=== PATIENT | male | born 1950 | race Caucasian/White ===

== ENCOUNTER → 2017-06-12 | Day surgery (SDC) | payer OTHER ==
[~2017-06-12] VITALS: Ht 162.6 cm; Wt 97.8 kg
[~2017-06-12] MED LIST: ASPI325T PO; ASPI81TA23 PO; ASPIRIN 325 MG TAB PO SCH; ATOR20TA PO; ATOR20TA15 PO; CARV25TA; CEPH500C3 PO; CORE25TA PO; COZA100T PO; GLIP10TA6 PO; GLIP1TAB18 PO; GLUCTAB PO; HYDR-3129 PO; LOSA100T PO; NITR0.4S SL; NITROGLYCERIN-D5W 50 MG/250 ML 250 ML ONE; NOVO7030P2 SQ; PIOG30 PO; SODIUM CHLOR 0.9% 1000 ML INJ 1,000 ML IV SCH; SPIR25 PO; SPIR25TA PO
[2017-06-12 06:26] VITALS: BP 137/71; PULSE 68; RESP 20; TEMP 97.8; O2SAT 98
--- NOTE | 2017-06-12 06:40 | MH ---
cc: Abraham Conley MD DATE OF ADMISSION: 06/12/2017 ADMISSION DIAGNOSES: 1. Class 3 angina pectoris with an abnormal nuclear stress test and known coronary artery disease. 2. History of previous ostial and proximal left anterior descending drug-eluting stent. 3. Cardiomyopathy, ejection fraction of 40%. 4. Type 2 diabetes. 5. Hypertension. 6. Hyperlipidemia. CHIEF COMPLAINT: Chest pain and dyspnea on exertion. HISTORY OF PRESENT ILLNESS: Mendoza Gross is a 67-year-old man whom I have been following closely for a number of years with coronary artery disease and cardiomyopathy. He had a previous revascularization procedure 12/03/2006. At that time, he had a 3.0 x 23 mm Cypher stent placed starting at the ostium of the left anterior descending coronary artery. It was postdilated with a 3.5 mm noncompliant balloon. At that time, he had a severe ostial stenosis of what appears to be probably a large marginal branch with a cutting balloon 2.5 mm in diameter. His last catheterization was 05/03/2009. At that time, ejection fraction was 20%. The left anterior descending artery stent was patent, but the LAD had diffuse disease. The first diagonal branch is jailed with diffuse 30% disease. The circumflex artery was a large vessel and had about a 20% proximal stenosis on a bend. 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 This was treated medically. The patient has been having problems with chest discomfort with activity and also shortness of breath with activity. He has a biventricular defibrillator. He underwent a nuclear stress test 04/29/2017. There was no transient ischemic dilation, but he had a moderate anterior and apical defect with redistribution suggestive of ischemia. His echocardiogram Doppler study shows an ejection fraction of about 40-45%. He has severe left ventricular hypertrophy. There is no significant valve disease. His symptoms have been ongoing despite a good medical therapy. Cardiac catheterization was initially scheduled quite a while ago, but the patient developed influenza and his procedure has been postponed until now. MEDICATIONS: 1. Aspirin 81 mg daily. 2. Atorvastatin 20 mg daily. 3. Carvedilol 25 mg p.o. twice a day. 4. Glipizide 10 mg twice a day. 5. Imdur 30 mg every morning. 6. Losartan 100 mg daily. 7. NovoLog insulin 70/30 as per protocol. 8. Spironolactone 25 mg daily. 9. Tamsulosin 0.4 mg daily. PAST MEDICAL HISTORY: Includes sleep apnea, biventricular [place] defibrillator, coronary artery disease, kidney stones, cardiomyopathy, colon polyps, depression, type 2 diabetes, hyperlipidemia, hypertension, old myocardial infarction and obesity. PAST SURGICAL HISTORY: Includes his catheterization procedures and colon resection in 2005. SOCIAL HISTORY: He is a college graduate served 4 years in [employer]. 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 He has never smoked. He is a nondrinker. He is . ALLERGIES: NONE. FAMILY HISTORY: Positive for hypertension and myocardial infarction in both of his parents. PHYSICAL EXAMINATION: GENERAL: This is a morbidly obese white male, with a body mass index of 37.42. HEENT: Unremarkable. NECK: Reveals no JVD, no bruits. CHEST: Shows a well-built healed defibrillator scar on the left chest. CARDIAC: Exam shows normal first and second heart sounds, regular rate and rhythm. No murmurs or gallops. ABDOMEN: Soft, nontender, no masses or organomegaly. EXTREMITIES: No clubbing or cyanosis. Pulses are intact. His old EKGs demonstrate AV pacing. IMPRESSION: This is a 67-year-old man who is 11 years out from an ostial proximal left anterior descending stent procedure. His nuclear stress test is now showing anteroapical ischemia. His risk factors are poorly controlled, i.e., with morbid obesity that is ongoing. PLAN: Perform diagnostic catheterization with possible intervention. Due to his short stature and morbid obesity, we will do this from the left wrist with possible revascularization if indicated. Informed consent has been obtained. MD PANCHO Garcia/BRIAN , 06:18 AM , 06:40 AM
[2017-06-12 06:43] LABS: AUTOMATED NEUTROPHIL # 6.7 TH/MM3 (1.8-7.7); BASOPHIL # 0.1 TH/MM3 (0-0.2); BASOPHIL % 1.1 % (0.0-2.0); EOSINOPHIL # 0.3 TH/MM3 (0-0.4); EOSINOPHIL % 2.6 % (0.0-4.0); HEMOGLOBIN 11.6 GM/DL (13.0-17.0); LYMPH % 24.1 % (9.0-44.0); LYMPHOCYTE # 2.7 TH/MM3 (1.0-4.8); MEAN CORPUSCULAR HEMOGLOBIN 29.3 PG (27.0-34.0); MEAN CORPUSCULAR HGB CONC 34.1 % (32.0-36.0); MEAN PLATELET VOLUME 7.2 FL (7.0-11.0); MONO % 11.3 % (0.0-8.0); MONOCYTE # 1.2 TH/MM3 (0-0.9); NEUT % 60.9 % (16.0-70.0); PLATELET COUNT 291 TH/MM3 (150-450); RED BLOOD COUNT 3.95 MIL/MM3 (4.50-5.90); RED CELL DISTRIBUTION WIDTH 13.4 % (11.6-17.2)
[2017-06-12 06:54] LABS: PROTHROMBIN TIME - PATIENT 10.2 SEC (9.8-11.6)
[2017-06-12 07:05] LABS: CALCIUM 9.3 MG/DL (8.5-10.1); CREATININE 2.13 MG/DL (0.60-1.30)
--- NOTE | 2017-06-12 14:06 | EKG ---
Date Performed: 06/12/2017 Time Performed: 06:53:28 PTAGE: 67 years EKG: Sinus rhythm WITH P-WAVE SYNCHRONOUS PACING Abnormal ECG Since PREVIOUS TRACING , no significant change noted PREVIOUS TRACIN03/15/2014 11.40 DOCTOR: Abraham Conley Interpretating Date/Time 06/12/2017 14:04:56
== END | disposition home or self-care (01) ==
LOC: HDOC 05:44 → HDIC 05:44
PROVIDERS: ATTEND Internal Medicine Cardiovascular Disease
DX: I25.119 Atherosclerotic heart disease of native coronary artery with unspecified angina pectoris (principal); I10 Essential (primary) hypertension; I42.9 Cardiomyopathy, unspecified; E11.9 Type 2 diabetes mellitus without complications; G47.30 Sleep apnea, unspecified; E78.5 Hyperlipidemia, unspecified; E66.01 Morbid (severe) obesity due to excess calories; Z68.37 Body mass index [BMI] 37.0-37.9, adult; Z79.82 Long term (current) use of aspirin; Z79.84 Long term (current) use of oral hypoglycemic drugs; Z95.5 Presence of coronary angioplasty implant and graft; Z87.442 Personal history of urinary calculi; Z53.09 Procedure and treatment not carried out because of other contraindication
CPT/HCPCS: 80048; 85025; 85610; 85730; 93005; G0463; J3010; 99211

== ENCOUNTER 2017-09-08 15:14 | Inpatient (IN) | payer OTHER, MEDICARE ==
[~2017-09-08] VITALS: Ht 162.6 cm; Wt 96.9 kg
[2017-09-08] VITALS (12 sets, daily range): BP systolic 88–177; BP diastolic 9–103; PULSE 63–148; RESP 16–24; TEMP 97.7–98.5; O2SAT 96–100
[~2017-09-08 15:14] MED LIST changes: -ASPI325T PO; -ASPIRIN 325 MG TAB PO SCH; -ATOR20TA PO; -CEPH500C3 PO; -CORE25TA PO; -COZA100T PO; -GLIP1TAB18 PO; -GLUCTAB PO; -HYDR-3129 PO; -NITROGLYCERIN-D5W 50 MG/250 ML 250 ML ONE; -PIOG30 PO; -SODIUM CHLOR 0.9% 1000 ML INJ 1,000 ML IV SCH; -SPIR25 PO
[2017-09-08] MEDS ORDERED: ASPIRIN 81 MG CHEW TAB PO ONE (15:30)
[2017-09-08] MEDS ORDERED: MORPHINE SULFATE 4 MG/ML INJ IV PUSH ONE (15:30)
[2017-09-08] MEDS ORDERED: SODIUM CHLORID 0.9% 500 ML INJ 500 ML IV ONE ×2 (15:30→16:15)
[2017-09-08] MEDS: NITROGLYCERIN 0.4 MG SL 25 TABS/BTL SL SCH ×3 (15:30→15:40)
[2017-09-08] MEDS ORDERED: SODIUM CHLORIDE 0.9% FLUSH 10 ML FLUSH IVF PRN (15:30)
[2017-09-08] MEDS ORDERED: METOPROLOL TARTRATE 5 MG/5 ML VIAL IVS SCH (15:30)
[2017-09-08] MEDS ORDERED: METOPROLOL TARTRATE 5 MG/5 ML VIAL IV PUSH ONE ×3 (15:45→16:30)
--- NOTE | 2017-09-08 15:56 | PD ---
HPI Chief Complaint: Chest Pain Time Seen by Provider: 15:26 Travel History International Travel<30 days: No Contact w/Intl Traveler<30days: No Traveled to known affect area: No History of Present Illness HPI The patient is a 67-year-old male who was chest pain. The patient states he developed chest pain approximately 10 AM this morning while lying in bed working on a puzzle. The chest pain is substernal, described as pressure, nonradiating, and associated with mild shortness of breath. The patient denies any nausea, vomiting, or diaphoresis. The chest pain is described as pressure. The patient does have a history of previous [place] with stent placement by Dr. Conley as well as a poor ejection fraction at 20%, with subsequent AICD placement. The patient recently has had some chest pain and saw Dr. Conley in the office, they contemplated a cardiac catheterization versus medical management. The patient states he has a history of CKD stage III, therefore, they decided to use a nitro patch as opposed to cardiac catheterization. The patient's symptoms did start this morning, he denies any history of atrial fibrillation. Symptoms are moderate. There are no current alleviating or exacerbating factors. PFSH Past Medical History Arthritis: Yes Blood Disorders: No Anxiety: Yes Cancer: Yes (SKIN) Cardiovascular Problems: Yes High Cholesterol: Yes Chemotherapy: No Chest Pain: No Diabetes: Yes (TYPE II) Endocrine: No Gastrointestinal Disorders: No Glaucoma: No Genitourinary: Yes Hepatitis: No Hiatal Hernia: No Hypertension: Yes Immune Disorder: No Kidney Stones: Yes Musculoskeletal: No Neurologic: No Psychiatric: No Reproductive: No Respiratory: Yes Integumentary: No Myocardial Infarction: Yes Radiation Therapy: No Thyroid Disease: No ?: Not Past Surgical History Abdominal Surgery: Yes (COLON) AICD: Yes (ATLAS ST [facility]) Cardiac Surgery: Yes (PACER/ HEART CATH. SENT X2 ) Pacemaker: No Thoracic Surgery: Yes (BIV-ICD-MADELINE) Other Surgery: Yes (SKIN CA REMOVED) Social History Alcohol Use: No Tobacco Use: No Substance Use: No Allergies-Medications (Allergen,Severity, Reaction): Coded Allergies: No Known Allergies (Verified Allergy, Unknown, NKA, 09/08/17) Reported Meds & Prescriptions Reported Meds & Active Scripts Active Reported Spironolactone 25 Mg Tab 25 Mg PO DAILY Novolin 70-30 Inj (Insulin Human Isoph/Insulin Regular) 1,000 Unit/10 Ml Vial 21 Units SQ Nitrostat SL (Nitroglycerin) 0.4 Mg Subl 0.4 Mg SL DIRECTED PRN 1 tablet under the tongue as needed for chest pain. Repeat every 5 minutes for a total of 3 DOSES or call 911 if NO relief. Losartan (Losartan Potassium) 100 Mg Tab 100 Mg PO DAILY Glipizide 10 Mg Tab 10 Mg PO BIDAC Take 30 minutes before a meal Carvedilol 25 Mg Tab 25 Mg BID Atorvastatin (Atorvastatin Calcium) 20 Mg Tab 20 Mg PO HS Aspirin EC (Aspirin) 81 Mg Tabdr 81 Mg PO DAILY Review of Systems Except as stated in HPI: all other systems reviewed are Neg General / Constitutional: No: Fever HENT: No: Lightheadedness Cardiovascular: Positive: Chest Pain or Discomfort, Dyspnea on exertion, No: Diaphoresis Respiratory: Positive: Shortness of Breath Gastrointestinal: No: Nausea, Vomiting, Abdominal Pain Musculoskeletal: Positive: Weakness Neurologic: No: Focal Abnormalities Physical Exam Narrative GENERAL: Awake, alert, pleasant 67-year-old male who appears his stated age. SKIN: Focused skin assessment warm/dry. Pale complexion. HEAD: Atraumatic. Normocephalic. EYES: Pupils equal and round. No scleral icterus. No injection or drainage. ENT: No nasal bleeding or discharge. Mucous membranes pink and moist. NECK: Trachea midline. No JVD. CARDIOVASCULAR: Irregularly irregular, tachycardic with a heart rate in the 140s. RESPIRATORY: No accessory muscle use. Clear to auscultation. Breath sounds equal bilaterally. GASTROINTESTINAL: Abdomen soft, non-tender, nondistended. Well-healed midline abdominal scar. MUSCULOSKELETAL: No obvious deformities. No clubbing. No cyanosis. No edema. NEUROLOGICAL: Awake and alert. No obvious cranial nerve deficits. Motor grossly within normal limits. Normal speech. Nonfocal. PSYCHIATRIC: Appropriate mood and affect; insight and judgment normal. Data Data Last Documented VS Vital Signs Date Time Temp Pulse Resp B/P (MAP) Pulse Ox O2 Delivery O2 Flow Rate FiO2 09/08/17 17:21 70 18 98 Room Air 09/08/17 17:20 2.00 09/08/17 15:20 97.7 Orders Orders Electrocardiogram (09/08/17 15:28) B-Type Natriuretic Peptide (09/08/17 15:28) Ckmb (Isoenzyme) Profile (09/08/17 15:28) Complete Blood Count With Diff (09/08/17 15:28) Comprehensive Metabolic Panel (09/08/17 15:28) Magnesium (Mg) (09/08/17 15:28) Prothrombin Time / Inr (Pt) (09/08/17 15:28) Act Partial Throm Time (Ptt) (09/08/17 15:28) Troponin I (09/08/17 15:28) Ecg Monitoring (09/08/17 15:28) Bilateral Bp Monitoring (09/08/17 15:28) Iv Access Insert/Monitor (09/08/17 15:28) Oximetry (09/08/17 15:28) Oxygen Administration (09/08/17 15:28) Aspirin Chew (Aspirin Chew) (09/08/17 15:30) Morphine Inj (Morphine Inj) (09/08/17 15:30) Sodium Chloride 0.9% Flush (Ns Flush) (09/08/17 15:30) Nitroglycerin Sl (Nitrostat Sl) (09/08/17 15:30) Metoprolol Tartrate Inj (Lopressor Inj) (09/08/17 15:30) Sodium Chlorid 0.9% 500 Ml Inj (Ns 500 M (09/08/17 15:30) Chest, Pa & Lat (09/08/17 15:28) Metoprolol Tartrate Inj (Lopressor Inj) (09/08/17 15:45) Nitroglycerin 2% Oint (Nitroglycerin 2% (09/08/17 16:00) Metoprolol Tartrate Inj (Lopressor Inj) (09/08/17 16:00) Sodium Chlorid 0.9% 500 Ml Inj (Ns 500 M (09/08/17 16:15) Metoprolol Tartrate Inj (Lopressor Inj) (09/08/17 16:30) Esmolol Drip Inj Premix (Brevibloc Drip (09/08/17 16:30) Esmolol Bolus Inj (Brevibloc Bolus Inj) (09/08/17 16:30) Esmolol Bolus Inj (Brevibloc Bolus Inj) (09/08/17 16:30) Digoxin Inj (Lanoxin Inj) (09/08/17 17:30) Chest, Single Ap (09/08/17 ) (Hub Use Only)Inp Phy Cons/Ref (09/08/17 ) Admit To Inpatient (09/08/17 ) Vital Signs (Adult) Q4H (09/08/17 17:39) Activity Oob With Assistance (09/08/17 17:39) Personal Computer Specialist / Telemetry .CONTINUOUS (09/08/17 17:39) Diet Heart Healthy (09/08/17 Dinner) Sodium Chlor 0.9% 1000 Ml Inj (Ns 1000 M (09/08/17 17:39) Sodium Chloride 0.9% Flush (Ns Flush) (09/08/17 17:45) Sodium Chloride 0.9% Flush (Ns Flush) (09/08/17 21:00) Acetaminophen (Tylenol) (09/08/17 17:45) Ondansetron Inj (Zofran Inj) (09/08/17 17:45) Basic Metabolic Panel (Bmp) (09/09/17 06:00) Complete Blood Count With Diff (09/09/17 06:00) Creatine Kinase (Cpk) (09/08/17 21:00) Creatine Kinase (Cpk) (09/09/17 03:00) Troponin I (09/08/17 21:00) Troponin I (09/09/17 03:00) Electrocardiogram (09/08/17 21:00) Electrocardiogram (09/09/17 03:00) Resp Oxygen Bran C Titrat 1-4 L (09/08/17 ) Heparin Inj (Heparin Inj) (09/08/17 18:00) Scd Bilateral/Knee High [place]ISON.BID (09/08/17 17:39) Ugo Bilateral/Knee High [place]AD[place].QSHIFT (09/08/17 17:39) Naloxone Inj (Narcan Inj) (09/08/17 17:45) Docusate Sodium-Senna (Yanet-Colace) (09/08/17 21:00) Magnesium Hydroxide Liq (Milk Of Magnesi (09/08/17 17:45) Sennosides (Senokot) (09/08/17 17:45) Bisacodyl Supp (Dulcolax Supp) (09/08/17 17:45) Lactulose Liq (Lactulose Liq) (09/08/17 17:45) Inpatient Certification (09/08/17 ) Consult Cardiology (09/08/17 ) Admit Order (Ed Use Only) (09/08/17 ) Labs Laboratory Tests Test 09/08/17 15:35 White Blood Count 12.1 TH/MM3 Red Blood Count 4.41 MIL/MM3 Hemoglobin 12.6 GM/DL Hematocrit 39.1 % Mean Corpuscular Volume 88.7 FL Mean Corpuscular Hemoglobin 28.6 PG Mean Corpuscular Hemoglobin Concent 32.2 % Red Cell Distribution Width 13.1 % Platelet Count 283 TH/MM3 Mean Platelet Volume 7.9 FL Neutrophils (%) (Auto) 71.7 % Lymphocytes (%) (Auto) 17.7 % Monocytes (%) (Auto) 8.2 % Eosinophils (%) (Auto) 1.6 % Basophils (%) (Auto) 0.8 % Neutrophils # (Auto) 8.7 TH/MM3 Lymphocytes # (Auto) 2.1 TH/MM3 Monocytes # (Auto) 1.0 TH/MM3 Eosinophils # (Auto) 0.2 TH/MM3 Basophils # (Auto) 0.1 TH/MM3 CBC Comment DIFF FINAL Differential Comment Prothrombin Time 10.2 SEC Prothromb Time International Ratio 1.0 RATIO Activated Partial Thromboplast Time 30.7 SEC Blood Urea Nitrogen 35 MG/DL Creatinine 2.12 MG/DL Random Glucose 206 MG/DL Total Protein 8.4 GM/DL Albumin 4.0 GM/DL Calcium Level 9.3 MG/DL Magnesium Level 1.8 MG/DL Alkaline Phosphatase 59 U/L Aspartate Amino Transf (AST/SGOT) 9 U/L Alanine Aminotransferase (ALT/SGPT) 22 U/L Total Bilirubin 0.7 MG/DL Sodium Level 137 MEQ/L Potassium Level 5.0 MEQ/L Chloride Level 111 MEQ/L Carbon Dioxide Level 16.3 MEQ/L Anion Gap 10 MEQ/L Estimat Glomerular Filtration Rate 31 ML/MIN Total Creatine Kinase 60 U/L Troponin I LESS THAN 0.02 NG/ML B-Type Natriuretic Peptide 40 PG/ML MDM Medical Decision Making Medical Screen Exam Complete: Yes Emergency Medical Condition: Yes Medical Record Reviewed: Yes Interpretation(s) EKG #1 reveals atrial fibrillation with RVR, rate in the 130s. QRS of 163 ms, consistent with bundle branch block. ST elevations noted, most likely secondary to underlying bundle branch block. EKG #2 reveals electronic ventricular pacemaker with a rate of 70. Laboratory Tests Test 09/08/17 15:35 White Blood Count 12.1 TH/MM3 Red Blood Count 4.41 MIL/MM3 Hemoglobin 12.6 GM/DL Hematocrit 39.1 % Mean Corpuscular Volume 88.7 FL Mean Corpuscular Hemoglobin 28.6 PG Mean Corpuscular Hemoglobin Concent 32.2 % Red Cell Distribution Width 13.1 % Platelet Count 283 TH/MM3 Mean Platelet Volume 7.9 FL Neutrophils (%) (Auto) 71.7 % Lymphocytes (%) (Auto) 17.7 % Monocytes (%) (Auto) 8.2 % Eosinophils (%) (Auto) 1.6 % Basophils (%) (Auto) 0.8 % Neutrophils # (Auto) 8.7 TH/MM3 Lymphocytes # (Auto) 2.1 TH/MM3 Monocytes # (Auto) 1.0 TH/MM3 Eosinophils # (Auto) 0.2 TH/MM3 Basophils # (Auto) 0.1 TH/MM3 CBC Comment DIFF FINAL Differential Comment Prothrombin Time 10.2 SEC Prothromb Time International Ratio 1.0 RATIO Activated Partial Thromboplast Time 30.7 SEC Blood Urea Nitrogen 35 MG/DL Creatinine 2.12 MG/DL Random Glucose 206 MG/DL Total Protein 8.4 GM/DL Albumin 4.0 GM/DL Calcium Level 9.3 MG/DL Magnesium Level 1.8 MG/DL Alkaline Phosphatase 59 U/L Aspartate Amino Transf (AST/SGOT) 9 U/L Alanine Aminotransferase (ALT/SGPT) 22 U/L Total Bilirubin 0.7 MG/DL Sodium Level 137 MEQ/L Potassium Level 5.0 MEQ/L Chloride Level 111 MEQ/L Carbon Dioxide Level 16.3 MEQ/L Anion Gap 10 MEQ/L Estimat Glomerular Filtration Rate 31 ML/MIN Total Creatine Kinase 60 U/L Troponin I LESS THAN 0.02 NG/ML B-Type Natriuretic Peptide 40 PG/ML Differential Diagnosis Differential diagnosis includes atrial fibrillation with RVR, coronary artery disease, acute coronary syndrome, cardiomyopathy, congestive heart failure, STEMI, electrolyte abnormality. Narrative Course IV was established, labs are drawn and sent, and the patient was placed on cardiac telemetry monitoring and continuous pulse oximetry monitoring. EKG was ordered and interpreted. Chest x-ray was obtained. The patient was administered aspirin and placed on Nitropaste. The patient also received morphine and Lopressor 5 mg intravenously. Lopressor 5 mg intravenously brought the patient's heart rate down into the 120s, therefore, the dose was repeated 1. The patient's heart rate was still in the 120s, therefore, he was administered a third dose of Lopressor 5 mg intravenously and placed on an esmolol drip. The patient was chest pain-free as of 4:18 PM. The patient then converted from atrial fibrillation with RVR back to a paced ventricular rhythm. The patient will be admitted, may benefit from echocardiogram and evaluation by his campground caretaker, Dr. Abraham Conley. I tried to get a hold of Dr. Abraham Conley, however, he was not on-call, Dr. Lizama was foundation maker. Therefore, consult will be placed. The patient may benefit from evaluation by cardiology for possible anticoagulation for paroxysmal atrial fibrillation. The patient agrees and understands the plan of care. Critical Care Narrative Aggregate critical care time was 40 minutes. Time to perform other separately billable procedures was not included in the critical care time. My time did not include minutes spent treating any other patients simultaneously or on activities that did not directly contribute to the patient's treatment. The services I provided to this patient were to treat and/or prevent clinically significant deterioration that could result in: Cardiomyopathy, ischemia, dysrhythmia, flash pulmonary edema, congestive heart failure. I provided critical care services requiring my management, as noted below: Chart data review, documentation time, medication orders and management, vital sign assessments/reviewing monitor data, ordering and reviewing lab tests, ordering and interpreting/reviewing x-rays and diagnostic studies, care of the patient and discussion of the patient with the admitting physicians. Physician Communication Physician Communication I discussed the patient with Dr. Garcia. who agrees with admission. Diagnosis Primary Impression: Atrial fibrillation with RVR Admitting Information Admitting Physician Requests: Admit Condition: Stable Humble Hoffman MD Sep 08, 2017 15:56
--- NOTE | 2017-09-08 15:59 | RADRPT ---
EXAM DATE: 09/08/2017 3:46 PM EDT AGE/SEX: 67 years / Male INDICATIONS: Chest pain CLINICAL DATA: This is the patient's initial encounter. Patient reports that signs and symptoms have been present for 1 day and indicates a pain score of 3/10. MEDICAL/SURGICAL HISTORY: Hypertension. Diabetes mellitus type II. Cardiovascular disease. Sergey austin. Coronary artery stent. COMPARISON: No prior exams available for comparison. FINDINGS: Pacemaker on the left. Mild cardiomegaly. No infiltrate failure or pneumothorax. The portion of the bony skeleton visualized is unremarkable. Conclusion: Pacemaker otherwise negative for acute process Electronically signed by: Michael Cruz MD 09/08/2017 3:57 PM EDT
[2017-09-08 16:00] LABS: AUTOMATED NEUTROPHIL # 8.7 TH/MM3 (1.8-7.7); BASOPHIL # 0.1 TH/MM3 (0-0.2); BASOPHIL % 0.8 % (0.0-2.0); EOSINOPHIL # 0.2 TH/MM3 (0-0.4); EOSINOPHIL % 1.6 % (0.0-4.0); HEMATOCRIT 39.1 % (39.0-51.0); HEMOGLOBIN 12.6 GM/DL (13.0-17.0); LYMPH % 17.7 % (9.0-44.0); LYMPHOCYTE # 2.1 TH/MM3 (1.0-4.8); MEAN CELL VOLUME 88.7 FL (80.0-100.0); MEAN CORPUSCULAR HEMOGLOBIN 28.6 PG (27.0-34.0); MEAN CORPUSCULAR HGB CONC 32.2 % (32.0-36.0); MEAN PLATELET VOLUME 7.9 FL (7.0-11.0); MONO % 8.2 % (0.0-8.0); NEUT % 71.7 % (16.0-70.0); PLATELET COUNT 283 TH/MM3 (150-450); RED BLOOD COUNT 4.41 MIL/MM3 (4.50-5.90); RED CELL DISTRIBUTION WIDTH 13.1 % (11.6-17.2); WHITE BLOOD COUNT 12.1 TH/MM3 (4.0-11.0)
[2017-09-08] MEDS: NITROGLYCERIN 2% OINT 1 GM PACKET TOPICAL ONE ×2 (16:00→17:04)
[2017-09-08 16:14] LABS: ALT (GPT) 22 U/L (12-78); AST (GOT) 9 U/L (15-37); BICARBONATE 16.3 MEQ/L (21.0-32.0); BLOOD UREA NITROGEN 35 MG/DL (7-18); CALCIUM 9.3 MG/DL (8.5-10.1); CHLORIDE 111 MEQ/L (98-107); CREATININE 2.12 MG/DL (0.60-1.30); GLOMERULAR FILTRATION RATE 31 ML/MIN (>89); GLUCOSE,RANDOM 206 MG/DL (74-106); MAGNESIUM 1.8 MG/DL (1.5-2.5); SODIUM (NA) 137 MEQ/L (136-145)
[2017-09-08 16:17] LABS: PROTHROMBIN TIME - PATIENT 10.2 SEC (9.8-11.6)
[2017-09-08 16:19] LABS: ALKALINE PHOSPHATASE 59 U/L (45-117); TOTAL BILIRUBIN ADULT 0.7 MG/DL (0.2-1.0); TOTAL PROTEIN 8.4 GM/DL (6.4-8.2); TROPONIN I LESS THAN 0.02 NG/ML (0.02-0.05)
[2017-09-08] MEDS ORDERED: ESMOLOL DRIP INJ PREMIX 250 ML IV PRN (16:30)
[2017-09-08] MEDS ORDERED: ESMOLOL HCL 100 MG/10 ML VIAL IV PUSH PRN ×2 (16:30)
[2017-09-08] MEDS ORDERED: DIGOXIN 0.5 MG/2 ML VIAL IV PUSH ONE (17:30)
[2017-09-08] MEDS ORDERED: SODIUM CHLOR 0.9% 1000 ML INJ 1,000 ML IV SCH (17:39)
[2017-09-08] MEDS ORDERED: BISACODYL 10 MG SUPP RECTAL PRN (17:45)
[2017-09-08] MEDS ORDERED: LACTULOSE SYRUP 20 GM/30 ML CUP PO PRN (17:45)
[2017-09-08] MEDS ORDERED: MAGNESIUM HYDROXIDE SUSP 30 ML CUP PO PRN (17:45)
[2017-09-08] MEDS ORDERED: ACETAMINOPHEN 325 MG TAB PO PRN (17:45)
[2017-09-08] MEDS ORDERED: ONDANSETRON HCL 4 MG/2 ML VIAL IVP PRN (17:45)
[2017-09-08] MEDS ORDERED: SODIUM CHLORIDE 0.9% FLUSH 10 ML FLUSH IV FLUSH PRN (17:45)
[2017-09-08] MEDS ORDERED: SENNOSIDES 8.6 MG TAB PO PRN (17:45)
[2017-09-08] MEDS ORDERED: NALOXONE HCL 0.4 MG/ML AMP IV PUSH PRN (17:45)
--- NOTE | 2017-09-08 17:56 | RADRPT ---
EXAM DATE: 09/08/2017 5:50 PM EDT AGE/SEX: 67 years / Male INDICATIONS: Left sided chest pain. CLINICAL DATA: This is the patient's initial encounter. Patient reports that signs and symptoms have been present for 1 day and indicates a pain score of 8/10. MEDICAL/SURGICAL HISTORY: . A-fib, myocardial infarction. Pacemaker. Coronary artery stent. [place] [facility] [place]. . FINDINGS: A pacing implement is present with control pack over left upper chest. Lungs are focally clear. No pl eural effusion evident. Cardiac contours are stable and satisfactory. CONCLUSION: No acute disease Electronically signed by: Abel Chacko MD 09/08/2017 5:54 PM EDT
[2017-09-08] MEDS ORDERED: HEPARIN SODIUM - SQ 10,000 UNITS/ML VIAL SQ SCH (18:00)
[2017-09-08] MEDS ORDERED: NOVO7030P2 SQ (18:07)
[2017-09-08] MEDS ORDERED: GLUCAGON 1 MG/ML VIAL OTHER PRN (18:45)
[2017-09-08] MEDS ORDERED: DEXTROSE 50% IN WATER 50 ML VIAL(D50) IV PUSH PRN (18:45)
--- NOTE | 2017-09-08 18:49 | HHI.HP ---
[facility] Service [facility] Primary Care Physician Juaquin Valladarse MD Admission Diagnosis New onset atrial fibrillation with RVR Diagnoses: (1) Coronary artery disease (2) Diabetes mellitus (3) Acute kidney injury (4) Atrial fibrillation with RVR Chief Complaint: Chest pain Travel History International Travel<30 Days: No Contact w/Intl Traveler <30 Da: No Traveled to Known Affected Are: No History of Present Illness The patient is a 67-year-old male who presented to the emergency department with chest pain that started approximately 10:00 this morning. He states that he was lying in bed at the time. Pain was on the left side of his chest described as pressure and radiating down his left arm. He reported associated shortness of breath. Pain resolved when he received medication in the ER. He has a history of coronary artery disease with prior stent placement by Dr. Conley. He has an AICD in place. He states that Dr. Conley is considering a repeat cardiac catheterization. Review of Systems Constitutional: DENIES: Fever, Chills, Night Sweats Eyes: DENIES: Blurred vision, Vision loss Ears, nose, mouth, throat: DENIES: Hearing loss Respiratory: DENIES: Cough, Wheezing, Sputum production, Shortness of breath Cardiovascular: COMPLAINS OF: Chest pain, DENIES: Palpitations, Dyspnea on Exertion, Lower Extremity Edema Gastrointestinal: DENIES: Abdominal pain, Constipation, Diarrhea, Nausea, Vomiting Genitourinary: DENIES: Urinary frequency, Urinary incontinence, Urgency, Hematuria, Dysuria, Nocturia Musculoskeletal: DENIES: Joint pain, Muscle aches Integumentary: DENIES: Pruritus, Rash Hematologic/lymphatic: DENIES: Bruising Neurologic: DENIES: Headache Past Family Social History Past Medical History Anxiety Diabetes mellitus type 2 Coronary artery disease History of kidney stones History of skin cancer Osteoarthritis Hypertension Chronic kidney disease stage III Past Surgical History Partial colectomy AICD placement Cardiac catheterization with stent placement Skin cancer surgery Reported Medications Spironolactone 25 Mg Tab 25 Mg PO DAILY Novolin 70-30 Inj (Insulin Human Isoph/Insulin Regular) 1,000 Unit/10 Ml Vial 21 Units SQ Nitrostat SL (Nitroglycerin) 0.4 Mg Subl 0.4 Mg SL DIRECTED PRN 1 tablet under the tongue as needed for chest pain. Repeat every 5 minutes for a total of 3 DOSES or call 911 if NO relief. Losartan (Losartan Potassium) 100 Mg Tab 100 Mg PO DAILY Glipizide 10 Mg Tab 10 Mg PO BIDAC Take 30 minutes before a meal Carvedilol 25 Mg Tab 25 Mg BID Atorvastatin (Atorvastatin Calcium) 20 Mg Tab 20 Mg PO HS Aspirin EC (Aspirin) 81 Mg Tabdr 81 Mg PO DAILY Allergies: Coded Allergies: No Known Allergies (Verified Allergy, Unknown, NKA, 09/08/17) Family History Heart disease Social History Denies alcohol, tobacco, or illicit drug use. Physical Exam Vital Signs Vital Signs Date Time Temp Pulse Resp B/P (MAP) Pulse Ox O2 Delivery O2 Flow Rate FiO2 09/08/17 17:21 70 18 98 Room Air 09/08/17 17:20 118 18 98 Nasal Cannula 2.00 09/08/17 17:19 132 19 98 Nasal Cannula 2.00 09/08/17 17:04 142 18 88/66 (73) 97 Nasal Cannula 2.00 09/08/17 16:28 123 18 112/59 (76) 97 09/08/17 16:15 125 122/60 (80) 97 09/08/17 16:15 125 18 122/60 (80) 98 Nasal Cannula 2.00 09/08/17 15:52 120 18 96/50 (65) 97 Nasal Cannula 2.00 09/08/17 15:52 120 16 96/50 (65) 96 Nasal Cannula 2.00 09/08/17 15:47 130 109/9 (42) 09/08/17 15:47 97 Nasal Cannula 2.00 09/08/17 15:20 97.7 148 24 177/103 (127) 97 Physical Exam GENERAL: Well-nourished, well-developed male in no acute distress. HEENT: Normocephalic, atraumatic. Pupils equal, round and reactive. Extraocular movements intact. No scleral icterus. No injection or drainage. Oropharynx is clear. Mucous membranes are moist. CARDIOVASCULAR: Regular rate and rhythm without murmurs, gallops, or rubs. RESPIRATORY: Clear to auscultation. No wheezes, rales, or rhonchi. Breathing is non-labored. GASTROINTESTINAL: Abdomen soft, non-tender, nondistended. EXTREMITIES: No lower extremity edema. No calf tenderness. PSYCH: Alert and oriented x 3. Laboratory Laboratory Tests Test 09/08/17 15:35 White Blood Count 12.1 Red Blood Count 4.41 Hemoglobin 12.6 Hematocrit 39.1 Mean Corpuscular Volume 88.7 Mean Corpuscular Hemoglobin 28.6 Mean Corpuscular Hemoglobin Concent 32.2 Red Cell Distribution Width 13.1 Platelet Count 283 Mean Platelet Volume 7.9 Neutrophils (%) (Auto) 71.7 Lymphocytes (%) (Auto) 17.7 Monocytes (%) (Auto) 8.2 Eosinophils (%) (Auto) 1.6 Basophils (%) (Auto) 0.8 Neutrophils # (Auto) 8.7 Lymphocytes # (Auto) 2.1 Monocytes # (Auto) 1.0 Eosinophils # (Auto) 0.2 Basophils # (Auto) 0.1 CBC Comment DIFF FINAL Differential Comment Prothrombin Time 10.2 Prothromb Time International Ratio 1.0 Activated Partial Thromboplast Time 30.7 Blood Urea Nitrogen 35 Creatinine 2.12 Random Glucose 206 Total Protein 8.4 Albumin 4.0 Calcium Level 9.3 Magnesium Level 1.8 Alkaline Phosphatase 59 Aspartate Amino Transf (AST/SGOT) 9 Alanine Aminotransferase (ALT/SGPT) 22 Total Bilirubin 0.7 Sodium Level 137 Potassium Level 5.0 Chloride Level 111 Carbon Dioxide Level 16.3 Anion Gap 10 Estimat Glomerular Filtration Rate 31 Total Creatine Kinase 60 Troponin I LESS THAN 0.02 B-Type Natriuretic Peptide 40 Result Diagram: 09/08/17 1535 09/08/17 1535 Imaging Last Impressions Chest X-Ray 09/08/17 0000 Signed Impressions: CONCLUSION: No acute disease Caprini VTE Risk Assessment Caprini VTE Risk Assessment: Mod/High Risk (score >= 2) Caprini Risk Assessment Model Point Value = 1 Point Value = 2 Point Value = 3 Point Value = 5 Age 41-60 Minor surgery BMI > 25 kg/m2 Swollen legs Varicose veins or History of unexplained or recurrent spontaneous Oral contraceptives or hormone replacement Sepsis (< 1 month) Serious lung disease, including pneumonia (< 1 month) Abnormal pulmonary function Acute myocardial infarction Congestive heart failure (< 1 month) History of inflammatory bowel disease Medical patient at bed rest Age 61-74 Arthroscopic surgery Major open surgery (> 45 min) Laparoscopic surgery (> 45 min) Malignancy Confined to bed (> 72 hours) Immobilizing plaster cast Central venous access Age >= 75 History of VTE Family history of VTE Factor V Leiden Prothrombin [id number] Lupus anticoagulant Anticardiolipin antibodies Elevated serum homocysteine Heparin-induced thrombocytopenia Other congenital or acquired thrombophilia Stroke (< 1 month) Elective arthroplasty Hip, pelvis, or leg fracture Acute spinal cord injury (< 1 month) Prophylaxis Regimen Total Risk Factor Score Risk Level Prophylaxis Regimen 0-1 Low Early ambulation 2 Moderate Order ONE of the following: *Sequential Compression Device (SCD) *Heparin 5000 units SQ BID 3-4 Higher Order ONE of the following medications: *Heparin 5000 units SQ TID *Enoxaparin/Lovenox 40 mg SQ daily (WT < 150 kg, CrCl > 30 mL/min) *Enoxaparin/Lovenox 30 mg SQ daily (WT < 150 kg, CrCl > 10-29 mL/min) *Enoxaparin/Lovenox 30 mg SQ BID (WT < 150 kg, CrCl > 30 mL/min) AND/OR *Sequential Compression Device (SCD) 5 or more Highest Order ONE of the following medications: *Heparin 5000 units SQ TID (Preferred with Epidurals) *Enoxaparin/Lovenox 40 mg SQ daily (WT < 150 kg, CrCl > 30 mL/min) *Enoxaparin/Lovenox 30 mg SQ daily (WT < 150 kg, CrCl > 10-29 mL/min) *Enoxaparin/Lovenox 30 mg SQ BID (WT < 150 kg, CrCl > 30 mL/min) AND *Sequential Compression Device (SCD) Assessment and Plan Assessment and Plan 1. New onset atrial fibrillation with RVR: The patient received 3 doses of IV Lopressor in the ER. He converted to paced ventricular rhythm. Monitor on telemetry. 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 Conley. CHADS-VASC score is 5. Would benefit from anticoagulation. 2. Diabetes mellitus: Continue home insulin regimen. Monitor Accu-Cheks and cover with sliding scale insulin. 3. Chronic systolic congestive heart failure: Prior echocardiogram showed ejection fraction of 20%. Patient has AICD in place. Continue carvedilol, statin. 4. Hypertension: Continue losartan, carvedilol. 5. Acute kidney injury superimposed on chronic kidney disease stage III: IV fluids, using caution due to CHF history. 6. DVT prophylaxis: Heparin. Ozzie Garcia MD Sep 08, 2017 18:48
--- NOTE | 2017-09-08 19:27 | EKG ---
Date Performed: 09/08/2017 Time Performed: 17:23:50 PTAGE: 67 years EKG: ELECTRONIC VENTRICULAR PACEMAKER ABNORMAL RHYTHM ECG Compared to prior electrocardiogram, V entricular pacemaker is now present. PREVIOUS TRACING : 09/08/2017 15.31 DOCTOR: Quang Edwards Interpretating Date/Time 09/08/2017 19:27:29
--- NOTE | 2017-09-08 19:35 | EKG ---
Date Performed: 09/08/2017 Time Performed: 15:31:52 PTAGE: 67 years EKG: ATRIAL FIBRILLATION WITH RAPID VENTRICULAR RESPONSE INTRAVENTRICULAR CONDUCTION DELAY Nonsp ecific intraventricular conduction defect Compared to prior electrocardiogram, rapid atrial fibrillat ion is present.Merom is rotated and I cannot rule out significant ST T-wave changes although clinical correlation is suggested. PREVIOUS TRACING : 06/12/2017 06.53 DOCTOR: Quang Edwards Interpretating Date/Time 09/08/2017 19:33:29
[2017-09-08 20:38] LABS: TROPONIN I 0.22 NG/ML (0.02-0.05)
[2017-09-08] MEDS: DOCUSATE SODIUM 50 MG/SENNA 8.6 MG TAB PO SCH (21:00)
[2017-09-08] MEDS: SODIUM CHLORIDE 0.9% FLUSH 10 ML FLUSH IV FLUSH SCH (21:31)
--- NOTE | 2017-09-08 21:32 | EKG ---
Date Performed: 09/08/2017 Time Performed: 19:45:23 PTAGE: 67 years EKG: ELECTRONIC VENTRICULAR PACEMAKER ABNORMAL RHYTHM ECG No significant change from prior elect rocardiogram. PREVIOUS TRACING : 09/08/2017 17.23 DOCTOR: Quang Edwards Interpretating Date/Time 09/08/2017 21:31:24
[2017-09-08] MEDS: INSULIN ASPART SUPPLEMENTAL SCALE SQ SCH (21:34)
[2017-09-08] MEDS ORDERED: HEPARIN SODIUM - IV 10,000 UNITS/10 ML VIAL IV PUSH ONE (21:45)
[2017-09-08] MEDS: HEPARIN-D5W 25,000 U/250 ML 250 ML IV PRN (21:57)
[2017-09-09] VITALS (13 sets, daily range): BP systolic 121–157; BP diastolic 61–76; PULSE 60–73; RESP 16–20; TEMP 97.6–98.7; O2SAT 97–99
[2017-09-09] MEDS ORDERED: HEPARIN SODIUM - IV 10,000 UNITS/10 ML VIAL IV PUSH PRN (03:45)
[2017-09-09 05:01] LABS: AUTOMATED NEUTROPHIL # 7.5 TH/MM3 (1.8-7.7); BASOPHIL # 0.1 TH/MM3 (0-0.2); BASOPHIL % 1.1 % (0.0-2.0); EOSINOPHIL # 0.3 TH/MM3 (0-0.4); HEMATOCRIT 35.4 % (39.0-51.0); HEMOGLOBIN 11.8 GM/DL (13.0-17.0); LYMPH % 29.6 % (9.0-44.0); LYMPHOCYTE # 3.8 TH/MM3 (1.0-4.8); MEAN CELL VOLUME 87.8 FL (80.0-100.0); MEAN CORPUSCULAR HEMOGLOBIN 29.2 PG (27.0-34.0); MEAN CORPUSCULAR HGB CONC 33.2 % (32.0-36.0); MEAN PLATELET VOLUME 8.2 FL (7.0-11.0); MONO % 8.9 % (0.0-8.0); MONOCYTE # 1.1 TH/MM3 (0-0.9); NEUT % 58.4 % (16.0-70.0); PLATELET COUNT 263 TH/MM3 (150-450); RED BLOOD COUNT 4.03 MIL/MM3 (4.50-5.90); RED CELL DISTRIBUTION WIDTH 12.9 % (11.6-17.2); WHITE BLOOD COUNT 12.8 TH/MM3 (4.0-11.0)
[2017-09-09 05:33] LABS: BICARBONATE 15.3 MEQ/L (21.0-32.0); CREATININE 1.95 MG/DL (0.60-1.30)
[2017-09-09 05:41] LABS: TROPONIN I 0.84 NG/ML (0.02-0.05)
[2017-09-09] MEDS: INSULIN ASPART SUPPLEMENTAL SCALE SQ SCH ×4 (08:00→20:40)
[2017-09-09] MEDS: SODIUM CHLORIDE 0.9% FLUSH 10 ML FLUSH IV FLUSH SCH ×2 (08:12→20:16)
[2017-09-09] MEDS: DOCUSATE SODIUM 50 MG/SENNA 8.6 MG TAB PO SCH ×2 (08:12→20:16)
--- NOTE | 2017-09-09 08:44 | HHI.PR ---
Subjective Remarks Follow-up for chest pain, A. fib with RVR, elevated troponins. Patient is seen sitting upright on the side of bed. He denies any further chest pain. Denies any palpitations, shortness of breath, orthopnea, or lower extremity edema. Heart rate has remained well controlled overnight. He has no other medical complaints at this time. Discussed recommendations for anticoagulation, patient agrees. Objective Vitals Vital Signs Date Time Temp Pulse Resp B/P (MAP) Pulse Ox O2 Delivery O2 Flow Rate FiO2 09/09/17 08:03 99 Nasal Cannula 2.00 09/09/17 05:23 97.7 65 16 138/74 (95) 99 09/09/17 04:26 98.5 60 16 134/76 (95) 98 09/08/17 23:44 98.5 66 16 129/62 (84) 97 09/08/17 22:37 09/08/17 20:30 63 16 106/59 (75) 100 Room Air 09/08/17 18:30 63 18 94/52 (66) 98 Nasal Cannula 2.00 09/08/17 17:21 70 18 98 Room Air 09/08/17 17:20 118 18 98 Nasal Cannula 2.00 09/08/17 17:19 132 19 98 Nasal Cannula 2.00 09/08/17 17:04 142 18 88/66 (73) 97 Nasal Cannula 2.00 09/08/17 16:28 123 18 112/59 (76) 97 09/08/17 16:15 125 122/60 (80) 97 09/08/17 16:15 125 18 122/60 (80) 98 Nasal Cannula 2.00 09/08/17 15:52 120 18 96/50 (65) 97 Nasal Cannula 2.00 09/08/17 15:52 120 16 96/50 (65) 96 Nasal Cannula 2.00 09/08/17 15:47 130 109/9 (42) 09/08/17 15:47 97 Nasal Cannula 2.00 09/08/17 15:20 97.7 148 24 177/103 (127) 97 I/O 09/08/17 09/08/17 09/08/17 09/09/17 09/09/17 09/09/17 07:00 15:00 23:00 07:00 15:00 23:00 Intake Total 1000 ml Balance 1000 ml Intake IV Total 1000 ml Result Diagram: 09/09/17 0340 09/09/17 0340 Imaging Last Impressions Chest X-Ray 09/08/17 0000 Signed Impressions: CONCLUSION: No acute disease Objective Remarks GENERAL: Well-nourished, well-developed male patient in NAD. SKIN: Warm and dry. No rash. HEENT: Normocephalic. Atraumatic. Pupils equal and round. Mucous membranes pink and moist. CARDIOVASCULAR: Regular rate and rhythm. No murmur appreciated. RESPIRATORY: No accessory muscle use. Clear to auscultation. Breath sounds equal bilaterally. GASTROINTESTINAL: Abdomen soft, non-tender, nondistended. Normoactive bowel sounds x4. MUSCULOSKELETAL: No obvious deformities. Extremities without clubbing, cyanosis , or edema. NEUROLOGICAL: Awake and alert. No obvious cranial nerve deficits. Motor grossly within normal limits. Moving all extremities spontaneously. Normal speech. PSYCHIATRIC: Appropriate mood and affect; insight and judgment normal. Medications and IVs Current Medications Medications (Trade) Dose Ordered Sig/Serina Route Start Time Stop Time Status Last Admin (Brevibloc Bolus Inj) 50 mg BOLUS PRN IV PUSH 09/08/17 16:30 (Brevibloc Bolus Inj) 50 mg BOLUS PRN IV PUSH 09/08/17 16:30 Sodium Chloride 1,000 ml @ 40 mls/hr Q24H IV 09/08/17 17:39 09/08/17 18:46 (NS Flush) 2 ml UNSCH PRN IV FLUSH 09/08/17 17:45 (NS Flush) 2 ml BID IV FLUSH 09/08/17 21:00 09/09/17 08:12 (Tylenol) 650 mg Q4H PRN PO 09/08/17 17:45 (Zofran Inj) 4 mg Q6H PRN IVP 09/08/17 17:45 (Narcan Inj) 0.4 mg UNSCH PRN IV PUSH 09/08/17 17:45 (Yanet-Colace) 1 tab BID PO 09/08/17 21:00 09/09/17 08:12 (Milk Of Magnesia Liq) 30 ml Q12H PRN PO 09/08/17 17:45 (Senokot) 17.2 mg Q12H PRN PO 09/08/17 17:45 (Dulcolax Supp) 10 mg DAILY PRN RECTAL 09/08/17 17:45 (Lactulose Liq) 30 ml DAILY PRN PO 09/08/17 17:45 (D50w (Vial) Inj) 50 ml UNSCH PRN IV PUSH 09/08/17 18:45 (Glucagon Inj) 1 mg UNSCH PRN OTHER 09/08/17 18:45 (NovoLOG SUPPLEMENTAL SCALE) 1 ACHS SLIDING SCALE SQ 09/08/17 21:00 09/08/17 21:34 (Heparin Inj) 5,000 units UNSCH PRN IV PUSH 09/09/17 03:45 (Heparin Inj) 2,500 units UNSCH PRN IV PUSH 09/09/17 03:45 Heparin Sodium/ Dextrose 250 ml @ 10 mls/hr TITRATE PRN IV 09/08/17 21:45 09/08/17 21:57 A/P Problem List: (1) Coronary artery disease ICD Code: I25.10 - Atherosclerotic heart disease of [place] coronary artery without angina pectoris (2) Diabetes mellitus ICD Code: E11.9 - Type 2 diabetes mellitus without complications (3) Acute kidney injury ICD Code: N17.9 - Acute kidney failure, unspecified (4) Atrial fibrillation with RVR ICD Code: I48.91 - Unspecified atrial fibrillation Status: Acute Assessment and Plan 67-year-old male with history of diabetes, hypertension, CAD with stent, chronic systolic CHF with EF 20%, AICD, anxiety, arthritis, CKD stage III, presents with chest pain. New onset atrial fibrillation with RVR: The patient received 3 doses of IV Lopressor in the ER. He converted to paced ventricular rhythm. -Monitor on telemetry. 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 Conley. -CHADS-VASC score is 5. Would benefit from anticoagulation. -Continue on IV heparin drip for now NSTEMI: patient presented with chest pain. Has hx of CAD s/p Stent. -Troponins trended 0.02 --> 0.22 --> 0.84 -EKG reviewed, no acute ischemic changes -Give aspirin, BB, statin, nitro prn, IV morphine prn, O2 as needed -Continue on IV heparin drip -Cardiology consulted, patient known to Dr. Conley Diabetes mellitus: Chronic -Continue home insulin regimen. -Monitor Accu-Cheks and cover with sliding scale insulin. Chronic systolic congestive heart failure: Prior echocardiogram showed ejection fraction of 20%. Patient has AICD in place. -Continue carvedilol, statin. Hypertension: Chronic -Hold patient's losartan for now with SHUKRI -Continue carvedilol. -Monitor BP, adjust antihypertensives as needed Acute kidney injury superimposed on chronic kidney disease stage III: Cr 2.12, previously 1.5 in 2014. -Give gentle IV fluids, using caution due to CHF history. -Repeat BMP with mild improvement, Cr 1.95 -Avoid nephrotoxins -Continue to monitor renal function DVT prophylaxis: Heparin drip Discharge Planning Pending evaluation by cardiology. Vickie Tolentino PA-C Sep 09, 2017 8:43 am
[2017-09-09] MEDS ORDERED: MORPHINE SULFATE 4 MG/ML INJ IV PUSH PRN (09:00)
[2017-09-09] MEDS ORDERED: NITROGLYCERIN 0.4 MG SL 25 TABS/BTL SL PRN (09:00)
[2017-09-09] MEDS ORDERED: CARVEDILOL 12.5 MG TAB PO SCH (09:00)
[2017-09-09] MEDS ORDERED: LORazepam 0.5 MG TAB PO ONE (09:00)
[2017-09-09] MEDS ORDERED: DIAZEPAM 5 MG TAB PO SCH (09:15)
[2017-09-09] MEDS ORDERED: diphenhydrAMINE HCL 50 MG CAP PO SCH (09:15)
[2017-09-09] MEDS: METOPROLOL TARTRATE 25 MG TAB PO SCH ×3 (09:36→21:59)
[2017-09-09] MEDS: SODIUM CHLOR 0.9% 1000 ML INJ 1,000 ML IV SCH (09:37)
--- NOTE | 2017-09-09 10:21 | MB ---
cc: Abraham Conley MD DATE: 09/09/2017 REASON FOR CONSULTATION: Evaluation of rapid atrial fibrillation and elevated troponin. HISTORY OF PRESENT ILLNESS: Mendoza Gross is a 67-year-old man well known to me. He has a known ischemic cardiomyopathy. He has had a previous anterior myocardial infarction. He had a catheterization procedure on 12/03/2006 whereupon he had a 3.0 x 23 mm Cypher stent placed in his proximal LAD and he had a cutting balloon of what was probably an RV branch. His last heart catheterization was 05/03/2009. Ejection fraction was only 20%. His LAD was widely patent but he had diffuse distal LAD disease. There was 90% ostial stenosis of an RV branch. Therefore, was recommended medical therapy. He had worsening of his chest pain so I did a nuclear stress test on him that showed evidence for anterior ischemia. I was getting ready to do a heart catheterization on him and that is when we discovered that he was in stage IIIB, almost stage IV renal failure. I held off on doing the catheterization. [place] renal [place] [facility] has cleared him for a catheterization. His angina; however, was stable when I last saw him in the office, so we were going to treat him medically. He comes in now stating that yesterday, after he got up he did not feel well and we interrogated his pacemaker and he went into rapid atrial fibrillation. The total duration was about 5 hours. He was treated in the ER with IV metoprolol and he subsequently has converted back into sinus mechanism; however, his troponins have gone up. He described pain in the center of his chest, typical of coronary ischemia during the time that he was in atrial fibrillation. He is no longer having any chest pain now. The problem we are having now is that he has extreme anxiety. He wants nothing more than to go home. I have never seen him this anxious before. He seemed a little better after he talked to his on the phone and after I have settled him down some, explaining things to him. PAST MEDICAL HISTORY: Includes sleep apnea, a [employer] Bi-V defibrillator, coronary artery disease, kidney stones in the past, cardiomyopathy with ejection fraction only 20%, colon polyps, depression, type 2 diabetes, hyperlipidemia, hypertension, obesity. PAST SURGICAL HISTORY: Includes his cath and stent procedures, colon resection in 2005. MEDICATIONS: 1. 81 mg daily. 2. Atorvastatin 20 mg daily. 3. Carvedilol 25 mg p.o. b.i.d. 4. Glipizide. 5. Losartan 100 mg daily. 6. Nitroglycerin patch, which was just recently added. 7. Spironolactone 25 mg daily. ALLERGIES: NONE KNOWN. FAMILY HISTORY: Positive for hypertension in mother and father and myocardial infarction in both mother and father. SOCIAL HISTORY: He is retired. He never smoked before. He spent 4 years in the [employer]. REVIEW OF SYSTEMS: Noncontributory. PHYSICAL EXAMINATION: GENERAL: Shows an obese, very anxious white male. VITAL SIGNS: Charted. GENERAL: He is morbidly obese based on a BMI over 35. HEENT: Exam is unremarkable. NECK: Negative for JVD or bruits. CHEST: Clear to auscultation. He has got a defibrillator in the left upper chest. CARDIAC EXAM: Shows S1 and S2. Regular rate and rhythm. No murmurs or gallops. ABDOMEN: Soft, nontender. No masses or organomegaly. EXTREMITIES: No clubbing, cyanosis or edema. Pulses are intact. EKG: Initial EKG showed atrial fibrillation with a rapid ventricular response. He had a left bundle configuration now that he is in sinus rhythm. Now that he is in sinus rhythm, he has P-wave synchronous Bi-V pacing with much more improvement in his QRS complex. IMAGING STUDIES: His chest x-ray is showing lungs were clear. LABORATORY DATA: His hematocrit yesterday was 39.1, today it is 35.4. His BUN is 34 with a creatinine of 1.95. It is a slight improvement from yesterday afternoon when it was 35 and 2.12. Troponin went from less than 0.02 to 0.22 and then this morning early to 0.84. CPKs are normal. IMPRESSION: A 67-year-old male with a known chronic ischemic cardiomyopathy, previous drug-eluting stent in the proximal LAD, now has been having angina and has an abnormal stress test. Complicating things is that he has stage IIIB renal failure. Now, he has new onset paroxysmal atrial fibrillation with a rapid ventricular response that resulted in him having a type 2 non-STEMI as a result of the stress and the rapid atrial fibrillation. He is also having an acute anxiety reaction. RECOMMENDATIONS: For the elevated enzymes and known abnormal stress test, I think it is time that we went ahead with a heart catheterization. I want to get him well hydrated. I am planning to do this tomorrow morning. I have obtained informed consent. I am going to go from the right radial artery approach if possible because of his morbid obesity. I think that is the first step to find out if he needs revascularization. I have discussed the case with Dr. Holcomb. If I end up stenting something, I will probably put him on amiodarone. If there is nothing wrong with his coronary circulation or no revascularization needed, then will probably get him referred to Dr. Holcomb for consideration of ablation. Last, I spoke to the primary care team. They are going to get him moved upstairs to a room which might help his anxiety. In addition, I would advise some therapy for the anxiety since it appears to be severe. The increased creatinine puts him at an increased risk of renal failure. The patient is aware of this risk. We will try to minimize this with appropriate crystalloid administration. Unfortunately, this patient is complicated, but we will do the best we can. MD PANCHO Garcia/ROSI , 09:34 AM , 10:20 AM
[2017-09-09] MEDS: NITROGLYCERIN 2% OINT 1 GM PACKET TOPICAL SCH ×2 (12:00→17:30)
--- NOTE | 2017-09-09 13:29 | EKG ---
Date Performed: 09/09/2017 Time Performed: 04:24:46 PTAGE: 67 years EKG: ELECTRONIC ATRIAL PACEMAKER ELECTRONIC VENTRICULAR PACEMAKER No significant change from guilherme or electrocardiogram. PREVIOUS TRACING : 09/08/2017 19.45 DOCTOR: Quang Edwards Interpretating Date/Time 09/09/2017 13:28:22
--- NOTE | 2017-09-09 18:37 | ECHRPT ---
Indication: A FIB FLUTTER CONCLUSIONS Normal left ventricular size. Moderate to severe concentric left ventricular hypertrophy. The left ventricular systolic function is normal with an estimated ejection fraction in the range of 55-60%. There is a small trivial effusion present. BP: / HR: Rhythm: MEASUREMENTS (Male / Female) Normal Values Technical Quality: 2D ECHO LV Diastolic Diameter PLAX 4.7 cm 4.2 - 5.9 / 3.9 - 5.3 cm LV Systolic Diameter PLAX 3.5 cm IVS Diastolic Thickness 1.8 cm 0.6 - 1.0 / 0.6 - 0.9 cm LVPW Diastolic Thickness 1.5 cm 0.6 - 1.0 / 0.6 - 0.9 cm LV Relative Wall Thickness 0.7 RV Internal Dim ED PLAX 2.0 cm LA Systolic Diameter LX 3.2 cm 3.0 - 4.0 / 2.7 - 3.8 cm DOPPLER Mitral E Point Velocity 60.3 cm/s Mitral A Point Velocity 92.1 cm/s Mitral E to A Ratio 0.7 TR Peak Velocity 236.0 cm/s TR Peak Gradient 22.3 mmHg Right Atrial Pressure 10.0 mmHg Pulmonary Artery Systolic Pressu 32.3 mmHg Right Ventricular Systolic Press 32.3 mmHg FINDINGS LEFT VENTRICLE Normal left ventricular size. Moderate to severe concentric left ventricular hypertrophy. The left ventricular systolic function is normal with an estimated ejection fraction in the range of 55-60%. RIGHT VENTRICLE Normal right ventricular size and systolic function. LEFT ATRIUM The left atrial size is normal. RIGHT ATRIUM The right atrial size is normal. ATRIAL SEPTUM Normal atrial septal thickness without atrial level shunting by limited color doppler interrogation. AORTA The aortic root and proximal ascending aorta are normal in size on limited imaging. MITRAL VALVE Structurally normal mitral valve. No mitral valve stenosis or regurgitation. AORTIC VALVE Trileaflet aortic valve. No aortic valve stenosis or regurgitation. TRICUSPID VALVE Structurally normal tricuspid valve. No tricuspid valve stenosis or regurgitation. PULMONARY VALVE No pulmonary valve regurgitation or stenosis. VESSELS The inferior vena cava is normal in size. PERICARDIUM There is a small trivial effusion present. Ciarra Stallings MD, FACC (Electronically Signed) Final Date:09 September 2017 18:36
[2017-09-09] MEDS: ATORVASTATIN 20 MG TAB PO SCH (20:16)
[2017-09-09] MEDS: HEPARIN SODIUM - IV 10,000 UNITS/10 ML VIAL IV PUSH PRN (20:23)
[2017-09-09] MEDS: LORazepam 0.5 MG TAB PO PRN (21:58)
[2017-09-10] VITALS (22 sets, daily range): BP systolic 120–145; BP diastolic 71–80; PULSE 59–74; RESP 16–20; TEMP 97.6–98.4; O2SAT 96–98
[2017-09-10] MEDS: NITROGLYCERIN 2% OINT 1 GM PACKET TOPICAL SCH ×5 (01:33→23:07)
[2017-09-10] MEDS: HEPARIN-D5W 25,000 U/250 ML 250 ML IV PRN (01:35)
[2017-09-10] MEDS: SODIUM CHLOR 0.9% 1000 ML INJ 1,000 ML IV SCH ×4 (01:37→23:09)
[2017-09-10] MEDS: METOPROLOL TARTRATE 25 MG TAB PO SCH ×4 (05:10→23:07)
[2017-09-10 06:25] LABS: AUTOMATED NEUTROPHIL # 6.4 TH/MM3 (1.8-7.7); BASOPHIL # 0.1 TH/MM3 (0-0.2); BASOPHIL % 1.2 % (0.0-2.0); EOSINOPHIL # 0.2 TH/MM3 (0-0.4); EOSINOPHIL % 1.9 % (0.0-4.0); HEMOGLOBIN 10.8 GM/DL (13.0-17.0); LYMPH % 26.2 % (9.0-44.0); LYMPHOCYTE # 2.8 TH/MM3 (1.0-4.8); MEAN CELL VOLUME 88.6 FL (80.0-100.0); MEAN CORPUSCULAR HEMOGLOBIN 29.9 PG (27.0-34.0); MEAN CORPUSCULAR HGB CONC 33.8 % (32.0-36.0); MEAN PLATELET VOLUME 8.2 FL (7.0-11.0); MONO % 9.8 % (0.0-8.0); NEUT % 60.9 % (16.0-70.0); PLATELET COUNT 236 TH/MM3 (150-450); RED BLOOD COUNT 3.62 MIL/MM3 (4.50-5.90); RED CELL DISTRIBUTION WIDTH 13.1 % (11.6-17.2); WHITE BLOOD COUNT 10.5 TH/MM3 (4.0-11.0)
[2017-09-10 06:48] LABS: BICARBONATE 15.4 MEQ/L (21.0-32.0); CALCIUM 8.7 MG/DL (8.5-10.1); CREATININE 1.85 MG/DL (0.60-1.30)
[2017-09-10] MEDS: HEPARIN SODIUM - IV 10,000 UNITS/10 ML VIAL IV PUSH PRN (07:19)
[2017-09-10] MEDS: INSULIN ASPART SUPPLEMENTAL SCALE SQ SCH ×4 (08:00→20:09)
[2017-09-10] MEDS: LORazepam 0.5 MG TAB PO PRN (08:20)
[2017-09-10] MEDS: DOCUSATE SODIUM 50 MG/SENNA 8.6 MG TAB PO SCH ×2 (08:21→20:11)
[2017-09-10] MEDS: SODIUM CHLORIDE 0.9% FLUSH 10 ML FLUSH IV FLUSH SCH ×2 (08:21→20:08)
[2017-09-10] MEDS ORDERED: HEPARIN-NS/PF INJ 1,000 ML ONE (09:41)
[2017-09-10] MEDS ORDERED: MIDAZOLAM HCL 2 MG/2 ML VIAL ONE ×2 (09:42→10:12)
[2017-09-10] MEDS ORDERED: VERAPAMIL HCL 5 MG/2 ML VIAL ONE (09:48)
[2017-09-10] MEDS ORDERED: HEPARIN SODIUM - IV 10,000 UNITS/10 ML VIAL ONE (09:48)
[2017-09-10] MEDS ORDERED: BIVALIRUDIN 250 MG VIAL ONE (10:21)
[2017-09-10] MEDS ORDERED: CLOPIDOGREL 300 MG TAB ONE (10:48)
[2017-09-10] MEDS ORDERED: ASPIRIN 325 MG TAB ONE (11:10)
[2017-09-10] MEDS ORDERED: BACITRACIN OINT 0.9 GM PKT TOP ONE (11:15)
[2017-09-10] MEDS ORDERED: SODIUM CHLORIDE 0.9% FLUSH 10 ML FLUSH IV FLUSH PRN (11:15)
[2017-09-10] MEDS ORDERED: MISC INFORMATION XX ONE (11:15)
--- NOTE | 2017-09-10 11:18 | CATHPROC ---
[employer] HIS Report Study Information Study Number Admission Scheduled Start Study Start [id number] Sep 08 2017 5:50PM 09/10/2017 Sep 10 2017 9:28AM [place] Service Cardiac Catheterization Admit Source Facility Department Emergency department [facility] - Director Industrial Nursing Physician and Clinical Staff Initial MD Conley, Abraham Over Short And Damage Clerk Joss Drake,ISAMAR Recorder Marie Putnam,RT(R) (BS) Scrub Luana Denson,NAVIN TECH2 Scrub Student, PREDICTIVE MAINTENANCE SPECIALIST/RT(R) Procedures Performed Procedure Location (Site) Vessel Name Coronary Angiograms LCA Left Coronary Coronary Angiograms RCA Right Coronary Drug Eluting Inflatio CIRC Prox CIRC IVUS Radial (right) Radial Art. PTCA ADD ON'S Wire insertion Radial (right) Radial Art. Equipment Time Press Box Custodian Description Size Mfg Part Number Used/Scraped WIRE, BALANCE MIDDLEWEIGHT [id number] 10:27 [employer] 190CM Used 190CM *[id number] TRANSDUCER, TRUWAVE [id number] 10:07 CAMERON CORTEZ * Used W/STOCKCOCK *[id number] *[id number] 10:07 MALLINCKRODT SYRINGE, ANGIOMAT 150ML 150ML *[id number] Used 2SUB [id number] 10:07 [employer] BLANKET,WARM AIR CCL * Used *[id number] 10:07 [employer] PACK, CCL CUSTOM * Used *[id number] 10:07 [employer] SUPPORT, ARTERIAL ADULT 85387 *[id number] Used [id number] 10:07 [employer] PACER PEN, SKIN DUAL W/ RULER * Used *[id number] 10:47 MEDTRONIC STENT, 4.0 12MM MARY 4.0 12MM Used *[id number] 10:24 Access Network 30 KIANA INDEFLATOR Used *[id number] BAND, RADIAL COMPRESSION TR [id number] 10:55 Access Network 24CM Used SHORT 24 *[id number] 10:07 Access Network WIRE, EXCHANGE 260CM 3MMJ 260CM Used *[id number] 10:07 NAMIC MANIFOLD, 4 PORT * Used *[id number] 10:07 NYCOMED OMNIPAQUE, 350 MG, 100ML 100ML [id number] Used 10:07 [employer] JELCO NEEDLE 4056 *[id number] Used CATHETER, FR5 OPTITORQUE [id number] 10:08 TERUMO MEDICAL FR 5 Used RADIAL TIG 4.0 *[id number] SHEATH, FR6 TRANSRADIAL RM*[id number] 10:07 [employer]ICAL FR 6 Used SLENDER 10CM *0871999 SHEATH, FR6 TRANSRADIAL RM*[id number] 10:07 TERUMO MEDICAL FR 6 Used SLENDER 10CM *[id number] CATHETER, [place] [employer] [id number] 10:39 [employer]OL[place]O Used IMAGING *[id number] Equipment Model, Serial, Lot Number and Expiration Data Description Model Number Serial Number Lot Number Expiration Date CATHETER, [employer] [employer] [id number] 04-16-2019 IMAGING STENT, 4.0 12MM MARY [id number] 02-11-2019 History: Current Medications Medication Dosage/Unit Route Frequency Last Date/Time Taken Beta Ortiz ASA Statins (any) History: Allergies Allergy Reaction No Known Allergies NKA History: Risk Factors Family History of Hypertension Dyslipidemia Previous NE Previous Heart Failure Premature CAD Yes Yes Yes Yes No Prior Valve Prior PCI Prior PCIDate Prior CABG Surgery No Yes 12/03/2016 No Cerebrovascular Peripheral Artery Chronic Lung On Dialysis Diabetes Disease Disease Disease No No No No Yes History: Stress Tests Stress or Imaging Studies Performed No History: Other Current Smoker No Labs Hgb (g/dl) Hct (%) WBC (l/cumm) Platelets (thousands) 11.60-17.00 35.00-51.00 4.00-11.00 150.00-450.00 10.5 32 10.5 236 BUN (mg/dl) Creatinine (mg/dl) BUN:Creatinine (1:x) 7.00-18.00 0.50-1.30 10.00-20.00 30 1.8 16.7 Na (meq/l) K (meq/l) 136.00-145.00 3.50-5.10 140 4.3 INR (PTT:PT) 0.90-1.10 1 Troponin I (ng/ml) CPK-MB (ng/ML) 0.02-0.05 0.50-3.60 0.84 Not Drawn Medication Medication Total Dose (Bolus/Oral) Medication Total Dosage/Unit 1% XYLOCAINE 1 mL ASPIRIN 325 mg FENTANYL 50 mcg HEPARIN 3000 units PLAVIX 600 mg RADIAL COCKTAIL 1 units VERSED 4 mg Medications (Bolus/Oral) Medication Time Given Dosage/Unit Administered By Reason VERSED 09/10/2017 10:05:32 AM 1 mg Joss Drake 1 mg VERSED given in lab by Joss Drake RN in Left Antecubital via Peripheral IV. FENTANYL 09/10/2017 10:06:43 AM 50 mcg Joss Drake 50 mcg FENTANYL given in lab by Joss Drake RN in Left Antecubital via Peripheral IV. VERSED 09/10/2017 10:11:42 AM 1 mg Joss Drake 1 mg VERSED given in lab by Joss Drake RN in Left Antecubital via Peripheral IV. 1% XYLOCAINE 09/10/2017 10:12:15 AM 1 mL Abraham Conley 1 mL 1% XYLOCAINE given in lab by Abraham Conley in Right Radial via Subcutaneous. VERSED 09/10/2017 10:14:00 AM 1 mg Joss Drake 1 mg VERSED given in lab by Joss Drake RN in Left Antecubital via Peripheral IV. Ntg 200mcg Verapamil 2.5mg Heparin RADIAL COCKTAIL 09/10/2017 10:15:10 AM 1 units Abraham Conley 2500U 1 units RADIAL COCKTAIL given in lab by Abraham Conley in Right Radial via Radial. Reason: Ntg 200mcg Verapamil 2.5mg Heparin 2500U. VERSED 09/10/2017 10:16:44 AM 1 mg Joss Drake 1 mg VERSED given in lab by Joss Drake RN in Left Antecubital via Peripheral IV. HEPARIN 09/10/2017 10:30:24 AM 3000 units Joss Drake 3000 units HEPARIN given in lab by Joss Drake RN in Left Antecubital via Peripheral IV. PLAVIX 09/10/2017 11:00:05 AM 600 mg Joss Drake 600 mg PLAVIX given in lab by Joss Drake RN via Oral. ASPIRIN 09/10/2017 11:15:50 AM 325 mg Joss Drake 325 mg ASPIRIN given in lab by Joss Drake RN via Subcutaneous. Medication (Drip) Medication Time Given Dosage/Unit Concentration/Unit Diluent (ml) Solutio n IV Solutions 09/10/2017 9:35:13 AM 0 mL (IV) 1000 NaCl .9 Patient arrived on IV Solutions in Right Antecubital via Peripheral IV. Pump/Drip Flow = 30 ml/hr usi ng NaCl .9. Initial Case Assessment Cardiovascular HR Rhythm NIBP Chest Pain 63 irr 150/73 0 Edema Present Skin color Skin None Normal Warm Dry Circulatory - Right Pulses Dorsalis Pedis Femoral Radial 2 2 2 Scale (0,1,2,3,4,d) Scale (0,1,2,3,4,d) Circulatory - Lower Extremities Color Lower Right Color Lower Left Normal Normal Neurological State Oriented to time-place- Alert Moves all extremities person Respiration - General Respiration Rate SpO2 (%) (B/min) 19 99 Chronological Log Time Study Chronological Log 9:34:57 Patient arrived via Bed. 9:34:58 Patient Name, D.O.B, / Armband Verified By R.N. 9:34:59 Consent signed by the physician and the patient and verified by the Director Industrial Nursing staff. 9:35:00 Pre-op and post- op instructions given; patient acknowledges understanding of instructions. 9:35:00 Verbal Stimulation=2 Physical Stimulation=2 Airway=2 Respiration=2 TOTAL=8. (0=absent, 1=li mited, 2=present) 9:35:07 Allens test performed on the right radial and ulnar artery. 9:35:08 Patient has been NPO for More than 6Hrs. 9:35:10 Skin Breakdown none per pt 9:35:10 Patient Warmer Placed on the Table. 9:35:12 Amna Prominences Protected 9:35:13 A # 20 IV was noted in the Antecubital (right). Grade = 0 9:35:13 Patient arrived on IV Solutions in Right Antecubital via Peripheral IV. Pump/Drip Flow = 30 ml/hr using NaCl .9. 9:35:14 History and physical on the chart or being dictated. Assessment: Initial Case, HR=63 BPM, Rhythm=irr, WNCR=636/73 mmhg, Chest Pain=0, Edema=None, Co jessica=Normal, Skin = Warm, Dry Right Pulses: Avinash Ped=2, Femoral=2, Radial=2 9:35:15 Lower Right Extremities: Color=Normal Lower Left Extremities: Color=Normal Neurological: State=Alert, Ox3, [place] Respiration: Resp=19 B/min, SpO2=99 % 9:42:12 A # 20 IV was noted in the Antecubital (left). Grade = 0 Vitals capture started with the following parameters, Patient=Adult, Interval=5 min, Initial Pr lrcxzh=556 mmHg, 9:42:36 Deflation Rate=5 mmHg, Cuff placed on Left Arm 9:42:40 Reference ECG taken 9:44:02 HR=62 bpm, PAQZ=874/73 mmhg, SpO2=99.0 %, Resp=16 B/min, Pain=0, Shane=10, Alexander=2 9:46:06 Right Radial and groin(s) prepped with 2% chlorhexidine, and draped after a 3 min. waiting t jacobo. 9:48:18 HR=61 bpm, RGIX=220/77 mmhg, SpO2=99.0 %, Resp=21 B/min, Pain=0, Shane=10, Alexander=2 9:53:21 HR=60 bpm, VTQS=217/79 mmhg, SpO2=98.0 %, Resp=18 B/min, Pain=0, Shane=10, Alexander=2 9:55:22 Pressure channel 1 zeroed. 9:58:22 HR=60 bpm, BJHN=141/65 mmhg, SpO2=98.0 %, Resp=21 B/min, Pain=0, Shane=10, Alexander=2 10:03:19 HR=62 bpm, AUBV=193/70 mmhg, SpO2=98.0 %, Resp=19 B/min, Pain=0, Shane=10, Alexander=2 10:05:32 1 mg VERSED given in lab by Joss Drake RN in Left Antecubital via Peripheral IV. 10:06:43 50 mcg FENTANYL given in lab by Joss Drake RN in Left Antecubital via Peripheral IV. 10:08:20 HR=60 bpm, GGQT=906/68 mmhg, SpO2=97.0 %, Resp=18 B/min, Pain=0, Shane=10, Alexander=2 Time Out. Correct patient, correct procedure, correct physician, labs, allergies, and equipment verified with [facility] laboratory 10:10:38 team present. Fire risk assesment completed (see hard stop sheet for coding). Time Out Conc urred by MD and individual staff in procedure. 10:10:40 Case Start 10:11:42 1 mg VERSED given in lab by Joss Drake RN in Left Antecubital via Peripheral IV. 10:12:15 1 mL 1% XYLOCAINE given in lab by Abraham Conley in Right Radial via Subcutaneous. 10:13:22 Access site was right Radial Artery. A SHEATH, FR6 TRANSRADIAL SLENDER 10CM FR 6 was advanced into the Radial (right) using the Perc utaneous 10:13:44 technique. 10:13:48 HR=61 bpm, GUKM=472/64 mmhg, SpO2=98.0 %, Resp=15 B/min, Pain=0, Shane=10, Alexander=2 10:14:00 1 mg VERSED given in lab by Joss Drake RN in Left Antecubital via Peripheral IV. 1 units RADIAL COCKTAIL given in lab by Abraham Conley in Right Radial via Radial. Reason: Ntg 2 00mcg Verapamil 10:15:10 2.5mg Heparin 2500U. A CATHETER, FR5 OPTITORQUE RADIAL TIG 4.0 FR 5 was advanced over a wire. OMNIPAQUE, 350 MG, 100 ML 100ML 10:16:17 was used for injections. 10:16:44 1 mg VERSED given in lab by Joss Drake RN in Left Antecubital via Peripheral IV. 10:18:20 HR=67 bpm, YPBN=525/59 mmhg, SpO2=95.0 %, Resp=22 B/min, Pain=0, Shane=10, Alexander=2 Recorded Pressure: Ao, HR=68, Condition=Condition 1 10:18:23 (Aorta) Ao 100/62/78 10:20:26 The LCA was injected and visualized at various angles. OMNIPAQUE, 350 MG, 100ML 100ML used . 10:22:40 The RCA was injected and visualized at various angles. OMNIPAQUE, 350 MG, 100ML 100ML used . 10:23:17 HR=64 bpm, YMFS=849/63 mmhg, SpO2=94.0 %, Resp=17 B/min, Pain=0, Shane=10, Alexander=2 10:23:51 OMNIPAQUE, 350 MG, 100ML 100ML and 30 KIANA INDEFLATOR added. 10:24:49 Activated Clotting Time Drawn After removing the current catheter a XB 3.5 GUIDE CATHETER FR 6 was advanced over a WIRE, EXCH BELEM 260CM 10:25:48 3MMJ 260CM. 10:28:18 HR=62 bpm, JBBP=173/63 mmhg, SpO2=96.0 %, Resp=21 B/min, Pain=0, Shane=10, Alexander=2 10:30:24 3000 units HEPARIN given in lab by Joss Drake, RN in Left Antecubital via Peripheral IV. 10:32:17 ACT (Normal Range 90-180) = 223 10:33:19 HR=61 bpm, QRTF=330/62 mmhg, SpO2=96.0 %, Resp=20 B/min, Pain=0, Shane=10, Alexander=2 10:37:10 Activated Clotting Time Drawn 10:37:13 A WIRE, BALANCE MIDDLEWEIGHT 190CM 190CM was inserted via Radial (right). 10:38:18 HR=63 bpm, CJDF=669/62 mmhg, SpO2=96.0 %, Resp=20 B/min, Pain=0, Shane=10, Alexander=2 10:41:55 ACT (Normal Range 90-180) = 303 10:42:48 An CATHETER, [employer]YUN[employer] IMAGING was advanced through the lesion. Images saved o [facility] IVUS hard drive 10:43:21 HR=55 bpm, CJTC=854/67 mmhg, SpO2=95.0 %, Resp=17 B/min, Pain=0, Shane=10, Alexander=2 10:45:33 IVUS catheter removed 10:48:18 HR=60 bpm, GCZJ=102/68 mmhg, SpO2=94.0 %, Resp=15 B/min, Pain=0, Shane=10, Alexander=2 A STENT, 4.0 12MM MARY 4.0 12MM was advanced through a XB 3.5 GUIDE CATHETER FR 6 over a WIRE, BALANCE 10:48:42 MIDDLEWEIGHT 190CM 190CM. A STENT, 4.0 12MM MARY 4.0 12MM was deployed using a 30 KIANA INDEFLATOR at 14 atmospheres for 2 5 seconds in 10:49:54 the CIRC Prox. 10:50:45 Delivery device removed 10:53:05 Case End (Physician broke scrub) 10:53:48 HR=60 bpm, KZKI=044/72 mmhg, SpO2=97.0 %, Resp=35 B/min, Pain=0, Shane=10, Alexander=2 10:54:20 Catheter(s) removed without difficulty Radial Compression Device Used. 10 mLs of air placed in BAND, RADIAL COMPRESSION TR SHORT 24 2 4CM. Affected 10:54:23 hand 97 % O2 saturation. 10:54:46 No case complications noted. 10:54:51 Bedside Report will be given. 10:54:51 Implantable Device card placed in patient's chart. 10:57:13 Vitals capture stopped. 11:00:05 600 mg PLAVIX given in lab by Joss Drake, RN via Oral. 11:01:44 Patient moved to stretcher 11:05:53 Patient moved to stretcher 11:15:50 325 mg ASPIRIN given in lab by Joss Drake, RN via Subcutaneous. End Study - Contrast Media Used In Study Contrast Total Opened (mL) Total Used (mL) Total Wasted (mL) Omnipaque 65 65 0 End Study - Maximum Contrast Load Max Contrast Load (mL) 277.8 End Study - Radiation Exposure Fluoro Time (minutes) 12.1 End Study - Sheaths Sheaths Pulled By Sheath Hold Time (min) Luana Denson End Study - Patient Disposition Complications Transferred To Interventional Outcome No Director Industrial Nursing Holding successful
--- NOTE | 2017-09-10 11:23 | MA ---
cc: Abraham Conley MD DATE: 09/10/2017 PROCEDURE PERFORMED: Coronary angiography, intravascular ultrasound of the circumflex artery, direct stenting of the circumflex artery. BRIEF HISTORY: Mendoza Gross is a 67-year-old man who came into the hospital yesterday with paroxysmal atrial fibrillation with rapid ventricular response. After IV beta santy, he converted to an atrially paced rhythm. His cardiac enzymes went up; however, with the troponin greater than 0.8. The patient is known to have angina and had a previous abnormal nuclear stress test. I had held off on doing a catheterization because of his renal insufficiency. He has been hydrated prior to this procedure. DESCRIPTION OF PROCEDURE: The patient was brought to the cardiac catheterization lab in a fasting state. The right wrist was prepped and draped in a sterile fashion. Using 1 percent lidocaine local anesthesia, a Terumo slender sheath was placed. He received 7 mg of intravenous Versed and intravenous fentanyl for sedation. Standard cocktail was administered through the sheath. I then used a [place] catheter to image the left and right coronary arteries. I then used a 6-[place] XB 3.5 guiding catheter to engage the left main. I wired the circumflex lesion. IVUS was performed showing a severe stenosis with a 1 mm area and a 4.0 vessel. We used a 4.0 x 12 mm Manuel stent deployed at 14 atmospheres. Angiography demonstrates no residual stenosis. Patient tolerated the procedure well. The guiding catheter was removed, the sheath was removed with a Terumo band placed. FINDINGS: 1. HEMODYNAMICS: The aortic pressure was 100/62 with a mean of 78. 2. CORONARY ANGIOGRAPHY: The left main coronary artery appears normal. It bifurcates into the LAD and circumflex vessels. The LAD has a widely patent ostial and proximal stent. The remainder of the LAD has irregularities of about 10% mid to distal disease. The circumflex artery gives off a very large marginal branch and a distal circumflex vessel. In the proximal circumflex prior to the bifurcation, it has a discrete 95 percent stenosis. The right coronary artery is totally occluded proximally with left to right collaterals. 3. RESULTS OF STENTING: Following stenting of the proximal circumflex vessel, a 0 percent residual stenosis had been achieved. CONCLUSIONS: 1. The patient is known to have a cardiomyopathy with an EF about 20% from previous studies. 2. Recent bii-KY-qlblwitel myocardial infarction. 3. Continued wide patency of the LAD stent. 4. Total occluded, but collateralized right coronary artery. 5. Critical stenosis of the circumflex artery now successfully stented. PLAN: The tentative plan is to place the patient on aspirin and Plavix. We will add amiodarone to prevent recurrence of atrial fibrillation. I am going to monitor his atrial fibrillation through this device. MD PANCHO Garcia/BRIAN , 11:04 AM , 11:22 AM
[2017-09-10] MEDS ORDERED: IOHEXOL 350 MG/ML 100 ML BTL (for Cath Lab) OTHER ONE (12:39)
--- NOTE | 2017-09-10 14:30 | HHI.PR ---
Subjective Remarks The patient was resting comfortably in bed. He said the catheterization went well. He denies any symptoms. He does not feel weak. He denies chest pain or shortness of breath. Discussed with his family at the bedside. Also discussed with nursing. Objective Vitals Vital Signs Date Time Temp Pulse Resp B/P (MAP) Pulse Ox O2 Delivery O2 Flow Rate FiO2 09/10/17 12:00 98.2 60 16 145/80 (101) 98 09/10/17 12:00 71 09/10/17 11:43 2.00 09/10/17 09:00 62 09/10/17 08:00 66 09/10/17 08:00 98.1 59 16 133/72 (92) 97 09/10/17 07:47 Room Air 09/10/17 07:00 60 09/10/17 05:41 64 09/10/17 05:00 64 09/10/17 04:00 97.6 62 20 140/75 (96) 97 09/10/17 04:00 Room Air 09/10/17 04:00 60 09/10/17 03:00 62 09/10/17 02:00 60 09/10/17 01:00 60 09/10/17 00:00 63 09/10/17 00:00 97.9 62 20 137/77 (97) 98 09/10/17 00:00 Room Air 09/09/17 23:00 60 09/09/17 22:00 64 09/09/17 21:00 70 09/09/17 20:09 97 Nasal Cannula 2.00 09/09/17 20:00 66 09/09/17 20:00 98.7 73 20 126/66 (86) 97 09/09/17 20:00 Room Air 09/09/17 19:00 68 09/09/17 15:00 98.6 67 18 121/66 (84) 97 I/O 09/09/17 09/09/17 09/09/17 09/10/17 09/10/17 09/10/17 07:00 15:00 23:00 07:00 15:00 23:00 Intake Total 250 ml 480 ml 240 ml Output Total 525 ml 1475 ml Balance 250 ml -45 ml -1235 ml Intake Oral 250 ml 480 ml 240 ml Output Urine Total 525 ml 1475 ml # Bowel Movements 0 Result Diagram: 09/10/17 0515 09/10/17 0515 Imaging Last Impressions Chest X-Ray 09/08/17 0000 Signed Impressions: CONCLUSION: No acute disease Objective Remarks GENERAL: Well-nourished, well-developed male patient in NAD. SKIN: Warm and dry. No rash. HEENT: Normocephalic. Atraumatic. Pupils equal and round. Mucous membranes pink and moist. CARDIOVASCULAR: Regular rate and rhythm. No murmur appreciated. RESPIRATORY: No accessory muscle use. Clear to auscultation. Breath sounds equal bilaterally. GASTROINTESTINAL: Abdomen soft, non-tender, nondistended. Normoactive bowel sounds x4. MUSCULOSKELETAL: No obvious deformities. Extremities without clubbing, cyanosis , or edema. NEUROLOGICAL: Awake and alert. No obvious cranial nerve deficits. Motor grossly within normal limits. Moving all extremities spontaneously. Normal speech. PSYCHIATRIC: Appropriate mood and affect; insight and judgment normal. A/P Problem List: (1) Coronary artery disease ICD Code: I25.10 - Atherosclerotic heart disease of picayune coronary artery without angina pectoris (2) Diabetes mellitus ICD Code: E11.9 - Type 2 diabetes mellitus without complications (3) Acute kidney injury ICD Code: N17.9 - Acute kidney failure, unspecified (4) Atrial fibrillation with RVR ICD Code: I48.91 - Unspecified atrial fibrillation Status: Acute Assessment and Plan 67-year-old male with history of diabetes, hypertension, CAD with stent, chronic systolic CHF with EF 20%, AICD, anxiety, arthritis, CKD stage III, presents with chest pain. New onset atrial fibrillation with RVR/ NSTEMI The patient received 3 doses of IV Lopressor in the ER. He converted to paced ventricular rhythm. Troponins trended 0.02 --> 0.22 --> 0.84. EKG reviewed, no acute ischemic changes. Started on a heparin gtt. - Monitor on telemetry. - Consult patient's christian science reader, Dr. Conley. S/p cath 09/10: Continued wide patency of the LAD stent; Total occluded, but collateralized right coronary artery; Critical stenosis of the circumflex artery now successfully stented. - continue on aspirin and Plavix. - added amiodarone to prevent recurrence of atrial fibrillation. Diabetes mellitus Well controlled. - Continue home insulin regimen. - Monitor Accu-Cheks and cover with sliding scale insulin. Chronic systolic congestive heart failure Prior echocardiogram showed ejection fraction of 20%. Patient has AICD in place. - Continue cardiac regimen. Hypertension Chronic. - Hold patient's losartan and Aldactone for now with SHUKRI. - Continue carvedilol. - Monitor BP, adjust antihypertensives as needed. Acute kidney injury Superimposed on chronic kidney disease stage III: Cr 2.12, previously 1.5 in 2014. - Give gentle IV fluids, using caution due to CHF history. - Repeat BMP and avoid nephrotoxins. - holding Aldactone and ARB. DVT prophylaxis: Heparin Discharge Planning Will need cardiology clearance Jay Rose DO Sep 10, 2017 14:30
[2017-09-10] MEDS: ATORVASTATIN 20 MG TAB PO SCH (20:07)
[2017-09-11] VITALS (16 sets, daily range): BP systolic 131–150; BP diastolic 74–81; PULSE 60–78; RESP 16–18; TEMP 98–98.3; O2SAT 96–98
[2017-09-11] MEDS: NITROGLYCERIN 2% OINT 1 GM PACKET TOPICAL SCH ×2 (05:56→11:21)
[2017-09-11] MEDS: METOPROLOL TARTRATE 25 MG TAB PO SCH ×2 (05:57→14:03)
[2017-09-11 06:14] LABS: AUTOMATED NEUTROPHIL # 6.6 TH/MM3 (1.8-7.7); BASOPHIL # 0.1 TH/MM3 (0-0.2); BASOPHIL % 0.8 % (0.0-2.0); EOSINOPHIL # 0.2 TH/MM3 (0-0.4); HEMATOCRIT 32.7 % (39.0-51.0); LYMPH % 22.8 % (9.0-44.0); LYMPHOCYTE # 2.3 TH/MM3 (1.0-4.8); MEAN CELL VOLUME 87.6 FL (80.0-100.0); MEAN CORPUSCULAR HEMOGLOBIN 29.5 PG (27.0-34.0); MEAN CORPUSCULAR HGB CONC 33.7 % (32.0-36.0); MEAN PLATELET VOLUME 8.1 FL (7.0-11.0); MONO % 9.9 % (0.0-8.0); NEUT % 64.5 % (16.0-70.0); PLATELET COUNT 234 TH/MM3 (150-450); RED BLOOD COUNT 3.73 MIL/MM3 (4.50-5.90); RED CELL DISTRIBUTION WIDTH 13.1 % (11.6-17.2); WHITE BLOOD COUNT 10.2 TH/MM3 (4.0-11.0)
[2017-09-11 06:40] LABS: BICARBONATE 17.1 MEQ/L (21.0-32.0); CALCIUM 8.8 MG/DL (8.5-10.1); CREATININE 1.79 MG/DL (0.60-1.30); MAGNESIUM 1.8 MG/DL (1.5-2.5)
[2017-09-11] MEDS: INSULIN ASPART SUPPLEMENTAL SCALE SQ SCH ×2 (07:52→11:21)
[2017-09-11] MEDS: SODIUM CHLORIDE 0.9% FLUSH 10 ML FLUSH IV FLUSH SCH (07:53)
[2017-09-11] MEDS: DOCUSATE SODIUM 50 MG/SENNA 8.6 MG TAB PO SCH (07:53)
[2017-09-11] MEDS ORDERED: CLOPIDOGREL 75 MG TAB PO SCH (09:00)
[2017-09-11] MEDS ORDERED: ASPIRIN 81 MG CHEW TAB PO SCH (09:00)
--- NOTE | 2017-09-11 12:36 | PD.CARD.PN ---
Subjective Subjective Remarks No complaints Feels great Objective Medications Current Medications Medications (Trade) Dose Ordered Sig/Serina Route Start Time Stop Time Status Last Admin (Brevibloc Bolus Inj) 50 mg BOLUS PRN IV PUSH 09/08/17 16:30 (Brevibloc Bolus Inj) 50 mg BOLUS PRN IV PUSH 09/08/17 16:30 (Tylenol) 650 mg Q4H PRN PO 09/08/17 17:45 (Zofran Inj) 4 mg Q6H PRN IVP 09/08/17 17:45 (Narcan Inj) 0.4 mg UNSCH PRN IV PUSH 09/08/17 17:45 (Yanet-Colace) 1 tab BID PO 09/08/17 21:00 09/09/17 08:12 (Milk Of Magnesia Liq) 30 ml Q12H PRN PO 09/08/17 17:45 (Senokot) 17.2 mg Q12H PRN PO 09/08/17 17:45 (Dulcolax Supp) 10 mg DAILY PRN RECTAL 09/08/17 17:45 (Lactulose Liq) 30 ml DAILY PRN PO 09/08/17 17:45 (D50w (Vial) Inj) 50 ml UNSCH PRN IV PUSH 09/08/17 18:45 (Glucagon Inj) 1 mg UNSCH PRN OTHER 09/08/17 18:45 (NovoLOG SUPPLEMENTAL SCALE) 1 ACHS SLIDING SCALE SQ 09/08/17 21:00 09/11/17 11:21 (Nitrostat Sl) 0.4 mg Q5M PRN SL 09/09/17 09:00 (Morphine Inj) 2 mg Q2H PRN IV PUSH 09/09/17 09:00 (Lipitor) 20 mg HS PO 09/09/17 21:00 09/10/17 20:07 (Lopressor) 25 mg Q8HR PO 09/09/17 09:15 09/11/17 05:57 (Nitroglycerin 2% Oint) 1 inch Q6HR TOPICAL 09/09/17 12:00 09/11/17 05:56 (Benadryl) 50 mg [employer]PERATOR PO 09/09/17 09:15 09/13/17 09:14 (Valium) 5 mg SPUN PA[employer] MACHINE OPERATOR PO 09/09/17 09:15 09/13/17 09:14 (Ativan) 0.5 mg Q8H PRN PO 09/09/17 13:15 09/10/17 08:20 (Aspirin Chew) 81 mg DAILY PO 09/11/17 09:00 09/11/17 07:53 (Plavix) 75 mg DAILY PO 09/11/17 09:00 09/11/17 07:53 (NS Flush) 2 ml UNSCH PRN IV FLUSH 09/10/17 11:15 (NS Flush) 2 ml BID IV FLUSH 09/10/17 21:00 09/11/17 07:53 Vital Signs / I&O Vital Signs Date Time Temp Pulse Resp B/P (MAP) Pulse Ox O2 Delivery O2 Flow Rate FiO2 09/11/17 12:00 98.0 62 16 131/81 (98) 96 09/11/17 12:00 60 09/11/17 11:00 78 09/11/17 10:00 66 09/11/17 09:00 70 09/11/17 08:00 98.1 66 16 150/77 (101) 97 09/11/17 08:00 63 09/11/17 07:35 Room Air 09/11/17 07:00 62 09/11/17 07:00 64 09/11/17 06:00 74 09/11/17 05:00 66 09/11/17 04:00 Room Air 09/11/17 04:00 67 09/11/17 04:00 98.3 76 18 149/81 (103) 98 09/11/17 03:00 62 09/11/17 02:00 64 09/11/17 01:00 66 09/11/17 00:00 71 09/11/17 00:00 98.1 68 16 131/74 (93) 97 09/10/17 23:00 66 09/10/17 22:00 64 09/10/17 21:00 70 09/10/17 20:00 98.4 74 20 120/71 (87) 98 09/10/17 20:00 63 09/10/17 20:00 Room Air 09/10/17 19:00 72 09/10/17 18:00 68 09/10/17 17:00 60 09/10/17 16:00 65 09/10/17 16:00 98.1 68 16 133/78 (96) 96 09/10/17 15:00 64 09/10/17 14:00 62 09/10/17 13:00 68 I/O 09/10/17 09/10/17 09/10/17 09/11/17 09/11/17 09/11/17 07:00 15:00 23:00 07:00 15:00 23:00 Intake Total 240 ml 1520 ml 240 ml Output Total 1475 ml 1025 ml 275 ml Balance -1235 ml 495 ml -35 ml Intake Oral 240 ml 620 ml 240 ml IV Total 900 ml Output Urine Total 1475 ml 1025 ml 275 ml # Voids 2 # Bowel Movements 0 1 Physical Exam GENERAL: NAD, AAOx3 SKIN: Warm and dry. HEAD: Atraumatic. Normocephalic. EYES: Pupils equal and round. No scleral icterus. No injection or drainage. ENT: No nasal bleeding or discharge. Mucous membranes pink and moist. NECK: Trachea midline. No JVD. CARDIOVASCULAR: Regular rate and rhythm. RESPIRATORY: No accessory muscle use. Clear to auscultation. Breath sounds equal bilaterally. GASTROINTESTINAL: Abdomen soft, non-tender, nondistended. Hepatic and splenic margins not palpable. MUSCULOSKELETAL: Extremities without clubbing, cyanosis, or edema. No obvious deformities. Right radial no hematoma, neurovascularly intact distally NEUROLOGICAL: Awake and alert. No obvious cranial nerve deficits. Motor grossly within normal limits. Five out of 5 muscle strength in the arms and legs. Normal speech. PSYCHIATRIC: Appropriate mood and affect; insight and judgment normal. Laboratory Laboratory Tests Test 09/10/17 14:24 09/11/17 04:47 Activated Partial Thromboplast Time 29.2 SEC White Blood Count 10.2 TH/MM3 Red Blood Count 3.73 MIL/MM3 Hemoglobin 11.0 GM/DL Hematocrit 32.7 % Mean Corpuscular Volume 87.6 FL Mean Corpuscular Hemoglobin 29.5 PG Mean Corpuscular Hemoglobin Concent 33.7 % Red Cell Distribution Width 13.1 % Platelet Count 234 TH/MM3 Mean Platelet Volume 8.1 FL Neutrophils (%) (Auto) 64.5 % Lymphocytes (%) (Auto) 22.8 % Monocytes (%) (Auto) 9.9 % Eosinophils (%) (Auto) 2.0 % Basophils (%) (Auto) 0.8 % Neutrophils # (Auto) 6.6 TH/MM3 Lymphocytes # (Auto) 2.3 TH/MM3 Monocytes # (Auto) 1.0 TH/MM3 Eosinophils # (Auto) 0.2 TH/MM3 Basophils # (Auto) 0.1 TH/MM3 CBC Comment DIFF FINAL Differential Comment Blood Urea Nitrogen 30 MG/DL Creatinine 1.79 MG/DL Random Glucose 151 MG/DL Calcium Level 8.8 MG/DL Magnesium Level 1.8 MG/DL Sodium Level 140 MEQ/L Potassium Level 4.2 MEQ/L Chloride Level 112 MEQ/L Carbon Dioxide Level 17.1 MEQ/L Anion Gap 11 MEQ/L Estimat Glomerular Filtration Rate 38 ML/MIN Total Creatine Kinase 72 U/L Assessment and Plan Problem List: (1) NSTEMI (non-ST elevated myocardial infarction) ICD Codes: I21.4 - Non-ST elevation (NSTEMI) myocardial infarction (2) Coronary artery disease ICD Codes: I25.10 - Atherosclerotic heart disease of [place] coronary artery without angina pectoris (3) Diabetes mellitus ICD Codes: E11.9 - Type 2 diabetes mellitus without complications (4) New onset atrial fibrillation ICD Codes: I48.91 - Unspecified atrial fibrillation Assessment and Plan 1) NSTEMI/CAD s/p DAVID to LCx ASA/Plavix/BB/ARB/Statin 2) Cardiovascularly stable for discharge Follow up with Dr. Conley 3) New onset Afib Discussed with Dr. Conley yesterday Will plan to stay off Amiodarone for now, heart rates controlled on BB therapy CHADSVASc = 5, high risk of CVA Eliquis for anti-coagulation Plan for ASA/Plavix/Eliquis on discharge Stop the ASA in 3-4 weeks Problem Qualifiers (1) Coronary artery disease: Qualified Codes: I25.110 - Atherosclerotic heart disease of [place] coronary artery with unstable angina pectoris Brandyn Scales DO Sep 11, 2017 12:36
--- NOTE | 2017-09-11 14:31 | HHI.PR ---
Subjective Remarks The patient is a 67-year-old male who presented to the emergency department with chest pain that started approximately 10:00 this morning. He states that he was lying in bed at the time. Pain was on the left side of his chest described as pressure and radiating down his left arm. He reported associated shortness of breath. Pain resolved when he received medication in the ER. He has a history of coronary artery disease with prior stent placement by Dr. Valenzuela. He has an AICD in place. He states that Dr. Valenzuela is considering a repeat cardiac catheterization. 09-09 Follow-up for chest pain, A. fib with RVR, elevated troponins. Patient is seen sitting upright on the side of bed. He denies any further chest pain. Denies any palpitations, shortness of breath, orthopnea, or lower extremity edema. Heart rate has remained well controlled overnight. He has no other medical complaints at this time. Discussed recommendations for anticoagulation , patient agrees. 09-10 The patient was resting comfortably in bed. He said the catheterization went well. He denies any symptoms. He does not feel weak. He denies chest pain or shortness of breath. Discussed with his family at the bedside. Also discussed with nursing. 09-11 CLEARED BY CARDIOLOGY WANTS TO GO HOME DC TO HOME TODAY FOLLOW UP WITH PCP IN 1 WEEK FOLLOW UP WITH DR VALENZUELA IN 2 WEEKS HAD STENT TO CIRCUMFLEX ARTERY Objective Vitals Vital Signs Date Time Temp Pulse Resp B/P (MAP) Pulse Ox O2 Delivery O2 Flow Rate FiO2 09/11/17 12:00 98.0 62 16 131/81 (98) 96 09/11/17 12:00 60 09/11/17 11:00 78 09/11/17 10:00 66 09/11/17 09:00 70 09/11/17 08:00 98.1 66 16 150/77 (101) 97 09/11/17 08:00 63 09/11/17 07:35 Room Air 09/11/17 07:00 62 09/11/17 07:00 64 09/11/17 06:00 74 09/11/17 05:00 66 09/11/17 04:00 Room Air 09/11/17 04:00 67 09/11/17 04:00 98.3 76 18 149/81 (103) 98 09/11/17 03:00 62 09/11/17 02:00 64 09/11/17 01:00 66 09/11/17 00:00 71 09/11/17 00:00 98.1 68 16 131/74 (93) 97 09/10/17 23:00 66 09/10/17 22:00 64 09/10/17 21:00 70 09/10/17 20:00 98.4 74 20 120/71 (87) 98 09/10/17 20:00 63 09/10/17 20:00 Room Air 09/10/17 19:00 72 09/10/17 18:00 68 09/10/17 17:00 60 09/10/17 16:00 65 09/10/17 16:00 98.1 68 16 133/78 (96) 96 09/10/17 15:00 64 I/O 09/10/17 09/10/17 09/10/17 09/11/17 09/11/17 09/11/17 07:00 15:00 23:00 07:00 15:00 23:00 Intake Total 240 ml 1520 ml 240 ml Output Total 1475 ml 1025 ml 275 ml Balance -1235 ml 495 ml -35 ml Intake Oral 240 ml 620 ml 240 ml IV Total 900 ml Output Urine Total 1475 ml 1025 ml 275 ml # Voids 2 # Bowel Movements 0 1 Result Diagram: 09/11/177 09/11/17446 Other Results Laboratory Tests Test 09/08/17 15:35 09/08/17 19:30 09/09/17 03:40 09/09/17 03:50 White Blood Count 12.1 TH/MM3 12.8 TH/MM3 Red Blood Count 4.41 MIL/MM3 4.03 MIL/MM3 Hemoglobin 12.6 GM/DL 11.8 GM/DL Hematocrit 39.1 % 35.4 % Mean Corpuscular Volume 88.7 FL 87.8 FL Mean Corpuscular Hemoglobin 28.6 PG 29.2 PG Mean Corpuscular Hemoglobin Concent 32.2 % 33.2 % Red Cell Distribution Width 13.1 % 12.9 % Platelet Count 283 TH/MM3 263 TH/MM3 Mean Platelet Volume 7.9 FL 8.2 FL Neutrophils (%) (Auto) 71.7 % 58.4 % Lymphocytes (%) (Auto) 17.7 % 29.6 % Monocytes (%) (Auto) 8.2 % 8.9 % Eosinophils (%) (Auto) 1.6 % 2.0 % Basophils (%) (Auto) 0.8 % 1.1 % Neutrophils # (Auto) 8.7 TH/MM3 7.5 TH/MM3 Lymphocytes # (Auto) 2.1 TH/MM3 3.8 TH/MM3 Monocytes # (Auto) 1.0 TH/MM3 1.1 TH/MM3 Eosinophils # (Auto) 0.2 TH/MM3 0.3 TH/MM3 Basophils # (Auto) 0.1 TH/MM3 0.1 TH/MM3 CBC Comment DIFF FINAL DIFF FINAL Differential Comment Prothrombin Time 10.2 SEC Prothromb Time International Ratio 1.0 RATIO Activated Partial Thromboplast Time 30.7 SEC 77.7 SEC Blood Urea Nitrogen 35 MG/DL 34 MG/DL Creatinine 2.12 MG/DL 1.95 MG/DL Random Glucose 206 MG/DL 138 MG/DL Total Protein 8.4 GM/DL Albumin 4.0 GM/DL Calcium Level 9.3 MG/DL 9.0 MG/DL Magnesium Level 1.8 MG/DL Alkaline Phosphatase 59 U/L Aspartate Amino Transf (AST/SGOT) 9 U/L Alanine Aminotransferase (ALT/SGPT) 22 U/L Total Bilirubin 0.7 MG/DL Sodium Level 137 MEQ/L 140 MEQ/L Potassium Level 5.0 MEQ/L 4.2 MEQ/L Chloride Level 111 MEQ/L 113 MEQ/L Carbon Dioxide Level 16.3 MEQ/L 15.3 MEQ/L Anion Gap 10 MEQ/L 12 MEQ/L Estimat Glomerular Filtration Rate 31 ML/MIN 34 ML/MIN Total Creatine Kinase 60 U/L 54 U/L 67 U/L Troponin I LESS THAN 0.02 NG/ML 0.22 NG/ML 0.84 NG/ML B-Type Natriuretic Peptide 40 PG/ML Test 09/09/17 12:27 09/09/17 19:10 09/10/17 05:15 09/10/17 14:24 Activated Partial Thromboplast Time 42.5 SEC 31.2 SEC 35.3 SEC 29.2 SEC White Blood Count 10.5 TH/MM3 Red Blood Count 3.62 MIL/MM3 Hemoglobin 10.8 GM/DL Hematocrit 32.0 % Mean Corpuscular Volume 88.6 FL Mean Corpuscular Hemoglobin 29.9 PG Mean Corpuscular Hemoglobin Concent 33.8 % Red Cell Distribution Width 13.1 % Platelet Count 236 TH/MM3 Mean Platelet Volume 8.2 FL Neutrophils (%) (Auto) 60.9 % Lymphocytes (%) (Auto) 26.2 % Monocytes (%) (Auto) 9.8 % Eosinophils (%) (Auto) 1.9 % Basophils (%) (Auto) 1.2 % Neutrophils # (Auto) 6.4 TH/MM3 Lymphocytes # (Auto) 2.8 TH/MM3 Monocytes # (Auto) 1.0 TH/MM3 Eosinophils # (Auto) 0.2 TH/MM3 Basophils # (Auto) 0.1 TH/MM3 CBC Comment DIFF FINAL Differential Comment Blood Urea Nitrogen 30 MG/DL Creatinine 1.85 MG/DL Random Glucose 127 MG/DL Calcium Level 8.7 MG/DL Sodium Level 140 MEQ/L Potassium Level 4.3 MEQ/L Chloride Level 113 MEQ/L Carbon Dioxide Level 15.4 MEQ/L Anion Gap 12 MEQ/L Estimat Glomerular Filtration Rate 36 ML/MIN Test 09/11/17 04:47 White Blood Count 10.2 TH/MM3 Red Blood Count 3.73 MIL/MM3 Hemoglobin 11.0 GM/DL Hematocrit 32.7 % Mean Corpuscular Volume 87.6 FL Mean Corpuscular Hemoglobin 29.5 PG Mean Corpuscular Hemoglobin Concent 33.7 % Red Cell Distribution Width 13.1 % Platelet Count 234 TH/MM3 Mean Platelet Volume 8.1 FL Neutrophils (%) (Auto) 64.5 % Lymphocytes (%) (Auto) 22.8 % Monocytes (%) (Auto) 9.9 % Eosinophils (%) (Auto) 2.0 % Basophils (%) (Auto) 0.8 % Neutrophils # (Auto) 6.6 TH/MM3 Lymphocytes # (Auto) 2.3 TH/MM3 Monocytes # (Auto) 1.0 TH/MM3 Eosinophils # (Auto) 0.2 TH/MM3 Basophils # (Auto) 0.1 TH/MM3 CBC Comment DIFF FINAL Differential Comment Blood Urea Nitrogen 30 MG/DL Creatinine 1.79 MG/DL Random Glucose 151 MG/DL Calcium Level 8.8 MG/DL Magnesium Level 1.8 MG/DL Sodium Level 140 MEQ/L Potassium Level 4.2 MEQ/L Chloride Level 112 MEQ/L Carbon Dioxide Level 17.1 MEQ/L Anion Gap 11 MEQ/L Estimat Glomerular Filtration Rate 38 ML/MIN Total Creatine Kinase 72 U/L Imaging Last Impressions Chest X-Ray 09/08/17 0000 Signed Impressions: CONCLUSION: No acute disease Objective Remarks GENERAL: AWAKE ALERT AND ORIENTED X3 TALKATIVE AND COOPERATIVE SKIN: Warm and dry. HEAD: Atraumatic. Normocephalic. EYES: Pupils equal and round. No scleral icterus. No injection or drainage. ENT: No nasal bleeding or discharge. Mucous membranes pink and moist. NECK: Trachea midline. No JVD. CARDIOVASCULAR: IRRegular rate and rhythm. S1, S2 NO S3 OR S4 RESPIRATORY: No accessory muscle use. Clear to auscultation. Breath sounds equal bilaterally. GASTROINTESTINAL: Abdomen soft, non-tender, nondistended. Hepatic and splenic margins not palpable. MUSCULOSKELETAL: Extremities without clubbing, cyanosis, or edema. No obvious deformities. NEUROLOGICAL: Awake and alert. No obvious cranial nerve deficits. Motor grossly within normal limits. Five out of 5 muscle strength in the arms and legs. Normal speech. PSYCHIATRIC: Appropriate mood and affect; insight and judgment normal. Procedures 09/10/2017 PROCEDURE PERFORMED: Coronary angiography, intravascular ultrasound of the circumflex artery, direct stenting of the circumflex artery. BRIEF HISTORY: Mendoza Gross is a 67-year-old man who came into the hospital yesterday with paroxysmal atrial fibrillation with rapid ventricular response. After IV beta santy, he converted to an atrially paced rhythm. His cardiac enzymes went up; however, with the troponin greater than 0.8. The patient is known to have angina and had a previous abnormal nuclear stress test. I had held off on doing a catheterization because of his renal insufficiency. He has been hydrated prior to this procedure. DESCRIPTION OF PROCEDURE: The patient was brought to the cardiac catheterization lab in a fasting state. The right wrist was prepped and draped in a sterile fashion. Using 1 percent lidocaine local anesthesia, a Terumo slender sheath was placed. He received 7 mg of intravenous Versed and intravenous fentanyl for sedation. Standard cocktail was administered through the sheath. I then used a Butler catheter to image the left and right coronary arteries. I then used a 6-Welsh XB 3.5 guiding catheter to engage the left main. I wired the circumflex lesion. IVUS was performed showing a severe stenosis with a 1 mm area and a 4.0 vessel. We used a 4.0 x 12 mm Manuel stent deployed at 14 atmospheres. Angiography demonstrates no residual stenosis. Patient tolerated the procedure well. The guiding catheter was removed, the sheath was removed with a Terumo band placed. FINDINGS: 1. HEMODYNAMICS: The aortic pressure was 100/62 with a mean of 78. 2. CORONARY ANGIOGRAPHY: The left main coronary artery appears normal. It bifurcates into the LAD and circumflex vessels. The LAD has a widely patent ostial and proximal stent. The remainder of the LAD has irregularities of about 10% mid to distal disease. The circumflex artery gives off a very large marginal branch and a distal circumflex vessel. In the proximal circumflex prior to the bifurcation, it has a discrete 95 percent stenosis. The right coronary artery is totally occluded proximally with left to right collaterals. 3. RESULTS OF STENTING: Following stenting of the proximal circumflex vessel, a 0 percent residual stenosis had been achieved. CONCLUSIONS: 1. The patient is known to have a cardiomyopathy with an EF about 20% from previous studies. 2. Recent [id number] myocardial infarction. 3. Continued wide patency of the LAD stent. 4. Total occluded, but collateralized right coronary artery. 5. Critical stenosis of the circumflex artery now successfully stented. PLAN: The tentative plan is to place the patient on aspirin and Plavix. We will add amiodarone to prevent recurrence of atrial fibrillation. I am going to monitor his atrial fibrillation through this device. Abraham Valenzuela MD Medications and IVs Current Medications Aspirin (Aspirin Chew) 324 mg ONCE ONCE PO Last administered on 09/08/17at 15: 50; Start 09/08/17 at 15:30; Stop 09/08/17 at 15:31; Status DC Morphine Sulfate (Morphine Inj) 4 mg ONCE ONCE IV PUSH Last administered on at 15:51; Start 09/08/17 at 15:30; Stop 09/08/17 at 15:31; Status DC Sodium Chloride (NS Flush) 2 ml UNSCH PRN IVF FLUSH AFTER USING IV ACCESS Last administered on 09/08/17at 15:50; Start 09/08/17 at 15:30; Stop 09/08/17 at 18:44 ; Status DC Nitroglycerin (Nitrostat Sl) 0.4 mg Q5M SL ; Start 09/08/17 at 15:30; Stop 09/08 at 15:41; Status DC Metoprolol Tartrate (Lopressor Inj) 5 mg Q5M IVS ; Start 09/08/17 at 15:30; Stop 09/08/17 at 15:39; Status DC Sodium Chloride 500 ml @ 500 mls/hr ONCE ONCE IV Last administered on at 15:51; Start 09/08/17 at 15:30; Stop 09/08/17 at 16:29; Status DC Metoprolol Tartrate (Lopressor Inj) 5 mg ONCE ONCE IV PUSH Last administered on 09/08/17at 15:49; Start 09/08/17 at 15:45; Stop 09/08/17 at 15:46; Status DC Nitroglycerin (Nitroglycerin 2% Oint) 0.5 inch ONCE ONCE TOPICAL ; Start at 16:00; Stop 09/08/17 at 16:01; Status DC Metoprolol Tartrate (Lopressor Inj) 5 mg ONCE ONCE IV PUSH Last administered on 09/08/17at 16:06; Start 09/08/17 at 16:00; Stop 09/08/17 at 16:01; Status DC Sodium Chloride 500 ml @ 500 mls/hr BOLUS ONCE IV Last administered on at 17:03; Start 09/08/17 at 16:15; Stop 09/08/17 at 17:14; Status DC Metoprolol Tartrate (Lopressor Inj) 5 mg ONCE ONCE IV PUSH Last administered on 09/08/17at 16:26; Start 09/08/17 at 16:30; Stop 09/08/17 at 16:31; Status DC Esmolol HCl/ Sodium Chloride 250 ml @ 0 mls/hr TITRATE PRN IV Blood Pressure Management; Start 09/08/17 at 16:30; Stop 09/08/17 at 21:33; Status DC Esmolol HCl (Brevibloc Bolus Inj) 50 mg BOLUS PRN IV PUSH Rebolus; Start at 16:30 Esmolol HCl (Brevibloc Bolus Inj) 50 mg BOLUS PRN IV PUSH Rebolus; Start at 16:30 Digoxin (Lanoxin Inj) 0.5 mg ONCE ONCE IV PUSH ; Start 09/08/17 at 17:30; Stop 09/08/17 at 17:30; Status DC Sodium Chloride 1,000 ml @ 40 mls/hr Q24H IV Last administered on 09/08/17at 18 :46; Start 09/08/17 at 17:39; Stop 09/09/17 at 09:13; Status DC Sodium Chloride (NS Flush) 2 ml UNSCH PRN IV FLUSH FLUSH AFTER USING IV ACCESS ; Start 09/08/17 at 17:45; Stop 09/10/17 at 11:15; Status DC Sodium Chloride (NS Flush) 2 ml BID IV FLUSH Last administered on 09/09/17at 20: 16; Start 09/08/17 at 21:00; Stop 09/10/17 at 11:15; Status DC Acetaminophen (Tylenol) 650 mg Q4H PRN PO TEMP > 100.4; Start 09/08/17 at 17:45 Ondansetron HCl (Zofran Inj) 4 mg Q6H PRN IVP NAUSEA OR VOMITING; Start at 17:45 Heparin Sodium (Porcine) (Heparin Inj) 5,000 units Q12H SQ Last administered on 09/08/17at 18:51; Start 09/08/17 at 18:00; Stop 09/08/17 at 21:35; Status DC Naloxone HCl (Narcan Inj) 0.4 mg UNSCH PRN IV PUSH SEE LABEL COMMENTS; Start at 17:45 Senna/Docusate Sodium (Yanet-Colace) 1 tab BID PO Last administered on at 08:12; Start 09/08/17 at 21:00 Magnesium Hydroxide (Milk Of Magnesia Liq) 30 ml Q12H PRN PO Mild constipation ; Start 09/08/17 at 17:45 Sennosides (Senokot) 17.2 mg Q12H PRN PO Moderate constipation; Start 09/08/17 at 17:45 Bisacodyl (Dulcolax Supp) 10 mg DAILY PRN RECTAL SEVERE CONSITIPATION; Start at 17:45 Lactulose (Lactulose Liq) 30 ml DAILY PRN PO SEVERE CONSITIPATION; Start at 17:45 Dextrose (D50w (Vial) Inj) 50 ml UNSCH PRN IV PUSH HYPOGLYCEMIA-SEE COMMENTS; Start 09/08/17 at 18:45 Glucagon (Glucagon Inj) 1 mg UNSCH PRN OTHER HYPOGLYCEMIA-SEE COMMENTS; Start 09/08/17 at 18:45 Insulin Aspart (NovoLOG SUPPLEMENTAL SCALE) 1 ACHS SLIDING SCALE SQ Last administered on 09/11/17at 11:21; Start 09/08/17 at 21:00 Heparin Sodium (Porcine) (Heparin Inj) 4,000 units ONCE ONCE IV PUSH Last administered on 09/08/17at 21:52; Start 09/08/17 at 21:45; Stop 09/08/17 at 21:46 ; Status DC Heparin Sodium (Porcine) (Heparin Inj) 5,000 units UNSCH PRN IV PUSH APTT LESS THAN 25; Start 09/09/17 at 03:45; Stop 09/10/17 at 11:14; Status DC Heparin Sodium (Porcine) (Heparin Inj) 2,500 units UNSCH PRN IV PUSH APTT 25 TO 39 Last administered on 09/10/17at 07:19; Start 09/09/17 at 03:45; Stop at 11:14; Status DC Heparin Sodium/ Dextrose 250 ml @ 10 mls/hr TITRATE PRN IV Coagulation Management Last administered on 09/10/17at 01:35; Start 09/08/17 at 21:45; Stop 09/10/17 at 11:14; Status DC Nitroglycerin (Nitrostat Sl) 0.4 mg Q5M PRN SL ANGINA; Start 09/09/17 at 09:00 Morphine Sulfate (Morphine Inj) 2 mg Q2H PRN IV PUSH chest pain; Start at 09:00 Atorvastatin Calcium (Lipitor) 20 mg HS PO Last administered on 09/10/17at 20:07 ; Start 09/09/17 at 21:00 Carvedilol (Coreg) 25 mg BID PO ; Start 09/09/17 at 09:00; Stop 09/09/17 at 09: 08; Status DC Lorazepam (Ativan) 0.5 mg ONCE ONCE PO Last administered on 09/09/17at 09:36; Start 09/09/17 at 09:00; Stop 09/09/17 at 09:06; Status DC Metoprolol Tartrate (Lopressor) 25 mg Q8HR PO Last administered on 09/11/17at 14 :03; Start 09/09/17 at 09:15 Nitroglycerin (Nitroglycerin 2% Oint) 1 inch Q6HR TOPICAL Last administered on 09/11/17at 05:56; Start 09/09/17 at 12:00 Sodium Chloride 1,000 ml @ 83 mls/hr Q12H3M IV Last administered on 09/10/17at 08:22; Start 09/09/17 at 09:08; Stop 09/10/17 at 11:13; Status DC Diphenhydramine HCl (Benadryl) 50 mg MUSEUM OR ZOO DIRECTOR PO ; Start 09/09/17 at 09:15; Stop 09/13/17 at 09:14 Diazepam (Valium) 5 mg MUSEUM OR ZOO DIRECTOR PO ; Start 09/09/17 at 09:15; Stop 09/13/17 at 09:14 Lorazepam (Ativan) 0.5 mg Q8H PRN PO anxiety Last administered on 09/10/17at 08: 20; Start 09/09/17 at 13:15 Heparin Sodium/ Sodium Chloride 1,000 ml @ As Directed STK-MED ONCE .ROUTE ; Start 09/10/17 at 09:41; Stop 09/10/17 at 09:42; Status DC Midazolam HCl (Versed Inj) 2 mg STK-MED ONCE .ROUTE Last administered on at 10:05; Start 09/10/17 at 09:42; Stop 09/10/17 at 09:43; Status DC Fentanyl Citrate (fentaNYL INJ) 100 mcg STK-MED ONCE .ROUTE Last administered on 09/10/17at 10:06; Start 09/10/17 at 09:42; Stop 09/10/17 at 09:43; Status DC Verapamil HCl (Isoptin Inj) 5 mg STK-MED ONCE .ROUTE Last administered on at 10:15; Start 09/10/17 at 09:48; Stop 09/10/17 at 09:49; Status DC Heparin Sodium (Porcine) (Heparin Inj) 10,000 units STK-MED ONCE .ROUTE Last administered on 09/10/17at 10:15; Start 09/10/17 at 09:48; Stop 09/10/17 at 09:49 ; Status DC Midazolam HCl (Versed Inj) 2 mg STK-MED ONCE .ROUTE Last administered on at 10:14; Start 09/10/17 at 10:12; Stop 09/10/17 at 10:13; Status DC Bivalirudin (Angiomax Inj) 250 mg STK-MED ONCE .ROUTE ; Start 09/10/17 at 10:21 ; Stop 09/10/17 at 10:22; Status DC Clopidogrel Bisulfate (Plavix) 600 mg STK-MED ONCE .ROUTE Last administered on 09/10/17at 11:00; Start 09/10/17 at 10:48; Stop 09/10/17 at 10:49; Status DC Sodium Chloride 1,000 ml @ 83 mls/hr Q12H3M IV Last administered on 09/10/17at 11:06; Start 09/10/17 at 11:06; Stop 09/11/17 at 05:05; Status DC Aspirin (Aspirin Chew) 81 mg DAILY PO Last administered on 09/11/17at 07:53; Start 09/11/17 at 09:00 Clopidogrel Bisulfate (Plavix) 75 mg DAILY PO Last administered on 09/11/17at 07 :53; Start 09/11/17 at 09:00 Bacitracin (Bacitracin Oint Packet) 0.9 gm ONCE ONCE TOP Last administered on 09/10/17at 11:15; Start 09/10/17 at 11:15; Stop 09/10/17 at 11:16; Status DC Sodium Chloride (NS Flush) 2 ml UNSCH PRN IV FLUSH FLUSH AFTER USING IV ACCESS ; Start 09/10/17 at 11:15 Sodium Chloride (NS Flush) 2 ml BID IV FLUSH Last administered on 09/11/17at 07: 53; Start 09/10/17 at 21:00 Miscellaneous Information 1 ONCE ONCE XX Last administered on 09/10/17at 11:15 ; Start 09/10/17 at 11:15; Stop 09/10/17 at 11:16; Status DC Aspirin (Aspirin) 325 mg STK-MED ONCE .ROUTE Last administered on 09/10/17at 11: 10; Start 09/10/17 at 11:10; Stop 09/10/17 at 11:11; Status DC Iohexol (OMNIPAQUE 350 INJ (Director Human Services)) 100 ml STK-MED ONCE OTHER ; Start at 12:39; Stop 09/10/17 at 12:40; Status DC Apixaban (Eliquis) 5 mg BID PO ; Start 09/11/17 at 21:00 A/P Problem List: (1) Coronary artery disease ICD Code: I25.10 - Atherosclerotic heart disease of [place] coronary artery without angina pectoris (2) Diabetes mellitus ICD Code: E11.9 - Type 2 diabetes mellitus without complications (3) Acute kidney injury ICD Code: N17.9 - Acute kidney failure, unspecified (4) Atrial fibrillation with RVR ICD Code: I48.91 - Unspecified atrial fibrillation Status: Acute Assessment and Plan 67-year-old male with history of diabetes, hypertension, CAD with stent, chronic systolic CHF with EF 20%, AICD, anxiety, arthritis, CKD stage III, presents with chest pain. New onset atrial fibrillation with RVR/ NSTEMI The patient received 3 doses of IV Lopressor in the ER. He converted to paced ventricular rhythm. Troponins trended 0.02 --> 0.22 --> 0.84. EKG reviewed, no acute ischemic changes. Started on a heparin gtt. - Monitor on telemetry. - Consult patient's photocopy operator, Dr. Valenzuela. S/p cath 09/10: Continued wide patency of the LAD stent; Total occluded, but collateralized right coronary artery; Critical stenosis of the circumflex artery now successfully stented. - continue on aspirin and Plavix. - added amiodarone to prevent recurrence of atrial fibrillation. Diabetes mellitus Well controlled. - Continue home insulin regimen. - Monitor Accu-Cheks and cover with sliding scale insulin. Chronic systolic congestive heart failure Prior echocardiogram showed ejection fraction of 20%. Patient has AICD in place. - Continue cardiac regimen. Hypertension Chronic. - Hold patient's losartan and Aldactone for now with SHUKRI. - Continue carvedilol. - Monitor BP, adjust antihypertensives as needed. Acute kidney injury Superimposed on chronic kidney disease stage III: Cr 2.12, previously 1.5 in 2014. - Give gentle IV fluids, using caution due to CHF history. - Repeat BMP and avoid nephrotoxins. - holding Aldactone and ARB. MEDS ADJUSTED BY CARDIOLOGY DC TO HOME TODAY FOLLOW UP WITH CARDIOLOGY AND PCP Discharge Planning DC TO HOME TODAY Michael Samayoa DO Sep 11, 2017 14:31
[2017-09-11] MEDS ORDERED: NITR0.4S SL (14:38)
[2017-09-11] MEDS ORDERED: ATOR20TA15 PO (14:38)
[2017-09-11] MEDS ORDERED: PLAV75TA29 PO (14:38)
[2017-09-11] MEDS ORDERED: METO25TA3 PO (14:38)
[2017-09-11] MEDS ORDERED: ASPI81TA23 PO (14:38)
[2017-09-11] MEDS ORDERED: APIX5TAB PO ×2 (14:38→19:01)
[2017-09-11] MEDS ORDERED: SPIR25TA PO (14:38)
--- NOTE | 2017-09-11 14:40 | HHI.DS ---
Discharge Summary Admission Date Sep 08, 2017 at 17:50 Discharge Date: Sep 11, 2017 Admitting Diagnosis New onset atrial fibrillation with RVR (1) Coronary artery disease ICD Code: I25.10 - Atherosclerotic heart disease of [place] coronary artery without angina pectoris Diagnosis: Principal (2) Diabetes mellitus ICD Code: E11.9 - Type 2 diabetes mellitus without complications Diagnosis: Principal (3) Acute kidney injury ICD Code: N17.9 - Acute kidney failure, unspecified Diagnosis: Principal (4) Atrial fibrillation with RVR ICD Code: I48.91 - Unspecified atrial fibrillation Diagnosis: Principal Status: Acute Procedures 09/10/2017 PROCEDURE PERFORMED: Coronary angiography, intravascular ultrasound of the circumflex artery, direct stenting of the circumflex artery. BRIEF HISTORY: Mendoza Gross is a 67-year-old man who came into the hospital yesterday with paroxysmal atrial fibrillation with rapid ventricular response. After IV beta santy, he converted to an atrially paced rhythm. His cardiac enzymes went up; however, with the troponin greater than 0.8. The patient is known to have angina and had a previous abnormal nuclear stress test. I had held off on doing a catheterization because of his renal insufficiency. He has been hydrated prior to this procedure. DESCRIPTION OF PROCEDURE: The patient was brought to the cardiac catheterization lab in a fasting state. The right wrist was prepped and draped in a sterile fashion. Using 1 percent lidocaine local anesthesia, a Terumo slender sheath was placed. He received 7 mg of intravenous Versed and intravenous fentanyl for sedation. Standard cocktail was administered through the sheath. I then used a Traver catheter to image the left and right coronary arteries. I then used a 6-[place] XB 3.5 guiding catheter to engage the left main. I wired the circumflex lesion. IVUS was performed showing a severe stenosis with a 1 mm area and a 4.0 vessel. We used a 4.0 x 12 mm Only stent deployed at 14 atmospheres. Angiography demonstrates no residual stenosis. Patient tolerated the procedure well. The guiding catheter was removed, the sheath was removed with a Terumo band placed. FINDINGS: 1. HEMODYNAMICS: The aortic pressure was 100/62 with a mean of 78. 2. CORONARY ANGIOGRAPHY: The left main coronary artery appears normal. It bifurcates into the LAD and circumflex vessels. The LAD has a widely patent ostial and proximal stent. The remainder of the LAD has irregularities of about 10% mid to distal disease. The circumflex artery gives off a very large marginal branch and a distal circumflex vessel. In the proximal circumflex prior to the bifurcation, it has a discrete 95 percent stenosis. The right coronary artery is totally occluded proximally with left to right collaterals. 3. RESULTS OF STENTING: Following stenting of the proximal circumflex vessel, a 0 percent residual stenosis had been achieved. CONCLUSIONS: 1. The patient is known to have a cardiomyopathy with an EF about 20% from previous studies. 2. Recent [id number] myocardial infarction. 3. Continued wide patency of the LAD stent. 4. Total occluded, but collateralized right coronary artery. 5. Critical stenosis of the circumflex artery now successfully stented. PLAN: The tentative plan is to place the patient on aspirin and Plavix. We will add amiodarone to prevent recurrence of atrial fibrillation. I am going to monitor his atrial fibrillation through this device. Abraham Conley MD Brief History - From Admission The patient is a 67-year-old male who presented to the emergency department with chest pain that started approximately 10:00 this morning. He states that he was lying in bed at the time. Pain was on the left side of his chest described as pressure and radiating down his left arm. He reported associated shortness of breath. Pain resolved when he received medication in the ER. He has a history of coronary artery disease with prior stent placement by Dr. Conley. He has an AICD in place. He states that Dr. Conley is considering a repeat cardiac catheterization. CBC/BMP: 09/11/17 0447 09/11/17446 Significant Findings Laboratory Tests Test 09/08/17 15:35 09/08/17 19:30 09/09/17 03:40 09/09/17 03:50 White Blood Count 12.1 TH/MM3 (4.0-11.0) 12.8 TH/MM3 (4.0-11.0) Red Blood Count 4.41 MIL/MM3 (4.50-5.90) 4.03 MIL/MM3 (4.50-5.90) Hemoglobin 12.6 GM/DL (13.0-17.0) 11.8 GM/DL (13.0-17.0) Neutrophils (%) (Auto) 71.7 % (16.0-70.0) Monocytes (%) (Auto) 8.2 % (0.0-8.0) 8.9 % (0.0-8.0) Neutrophils # (Auto) 8.7 TH/MM3 (1.8-7.7) Monocytes # (Auto) 1.0 TH/MM3 (0-0.9) 1.1 TH/MM3 (0-0.9) Activated Partial Thromboplast Time 30.7 SEC (24.3-30.1) 77.7 SEC (24.3-30.1) Blood Urea Nitrogen 35 MG/DL (7-18) 34 MG/DL (7-18) Creatinine 2.12 MG/DL (0.60-1.30) 1.95 MG/DL (0.60-1.30) Random Glucose 206 MG/DL (74-106) 138 MG/DL (74-106) Total Protein 8.4 GM/DL (6.4-8.2) Aspartate Amino Transf (AST/SGOT) 9 U/L (15-37) Chloride Level 111 MEQ/L (98-107) 113 MEQ/L (98-107) Carbon Dioxide Level 16.3 MEQ/L (21.0-32.0) 15.3 MEQ/L (21.0-32.0) Estimat Glomerular Filtration Rate 31 ML/MIN (>89) 34 ML/MIN (>89) Troponin I LESS THAN 0.02 NG/ML 0.22 NG/ML (0.02-0.05) 0.84 NG/ML (0.02-0.05) Hematocrit 35.4 % (39.0-51.0) Test 09/09/17 12:27 09/09/17 19:10 09/10/17 05:15 09/10/17 14:24 Activated Partial Thromboplast Time 42.5 SEC (24.3-30.1) 31.2 SEC (24.3-30.1) 35.3 SEC (24.3-30.1) Red Blood Count 3.62 MIL/MM3 (4.50-5.90) Hemoglobin 10.8 GM/DL (13.0-17.0) Hematocrit 32.0 % (39.0-51.0) Monocytes (%) (Auto) 9.8 % (0.0-8.0) Monocytes # (Auto) 1.0 TH/MM3 (0-0.9) Blood Urea Nitrogen 30 MG/DL (7-18) Creatinine 1.85 MG/DL (0.60-1.30) Random Glucose 127 MG/DL (74-106) Chloride Level 113 MEQ/L (98-107) Carbon Dioxide Level 15.4 MEQ/L (21.0-32.0) Estimat Glomerular Filtration Rate 36 ML/MIN (>89) Test 09/11/17 04:47 Red Blood Count 3.73 MIL/MM3 (4.50-5.90) Hemoglobin 11.0 GM/DL (13.0-17.0) Hematocrit 32.7 % (39.0-51.0) Monocytes (%) (Auto) 9.9 % (0.0-8.0) Monocytes # (Auto) 1.0 TH/MM3 (0-0.9) Blood Urea Nitrogen 30 MG/DL (7-18) Creatinine 1.79 MG/DL (0.60-1.30) Random Glucose 151 MG/DL (74-106) Chloride Level 112 MEQ/L (98-107) Carbon Dioxide Level 17.1 MEQ/L (21.0-32.0) Estimat Glomerular Filtration Rate 38 ML/MIN (>89) Imaging Last Impressions Chest X-Ray 09/08/17 0000 Signed Impressions: CONCLUSION: No acute disease PE at Discharge GENERAL: AWAKE ALERT AND ORIENTED X3 TALKATIVE AND COOPERATIVE SKIN: Warm and dry. HEAD: Atraumatic. Normocephalic. EYES: Pupils equal and round. No scleral icterus. No injection or drainage. ENT: No nasal bleeding or discharge. Mucous membranes pink and moist. NECK: Trachea midline. No JVD. CARDIOVASCULAR: IRRegular rate and rhythm. S1, S2 NO S3 OR S4 RESPIRATORY: No accessory muscle use. Clear to auscultation. Breath sounds equal bilaterally. GASTROINTESTINAL: Abdomen soft, non-tender, nondistended. Hepatic and splenic margins not palpable. MUSCULOSKELETAL: Extremities without clubbing, cyanosis, or edema. No obvious deformities. NEUROLOGICAL: Awake and alert. No obvious cranial nerve deficits. Motor grossly within normal limits. Five out of 5 muscle strength in the arms and legs. Normal speech. PSYCHIATRIC: Appropriate mood and affect; insight and judgment normal. Hospital Course The patient is a 67-year-old male who presented to the emergency department with chest pain that started approximately 10:00 this morning. He states that he was lying in bed at the time. Pain was on the left side of his chest described as pressure and radiating down his left arm. He reported associated shortness of breath. Pain resolved when he received medication in the ER. He has a history of coronary artery disease with prior stent placement by Dr. Conley. He has an AICD in place. He states that Dr. Conley is considering a repeat cardiac catheterization. 6-26 Follow-up for chest pain, A. fib with RVR, elevated troponins. Patient is seen sitting upright on the side of bed. He denies any further chest pain. Denies any palpitations, shortness of breath, orthopnea, or lower extremity edema. Heart rate has remained well controlled overnight. He has no other medical complaints at this time. Discussed recommendations for anticoagulation , patient agrees. 6-27 The patient was resting comfortably in bed. He said the catheterization went well. He denies any symptoms. He does not feel weak. He denies chest pain or shortness of breath. Discussed with his family at the bedside. Also discussed with nursing. 628 CLEARED BY CARDIOLOGY WANTS TO GO HOME DC TO HOME TODAY FOLLOW UP WITH PCP IN 1 WEEK FOLLOW UP WITH DR CONLEY IN 2 WEEKS HAD STENT TO CIRCUMFLEX ARTERY Pt Condition on Discharge: Good Discharge Disposition: Discharge Home Discharge Time: > 30 minutes Discharge Instructions DIET: Follow Instructions for: Heart Healthy Diet, Diabetic Diet, Renal Failure Diet Speech Therapy-Diet Recommends: Regular Activities you can perform: Weight Bearing as Aleks Follow up Referrals: Cardiology - 2 Weeks with Abraham Conley MD PCP Follow-up - 3-5 Days with Juaquin Valladares MD New Medications: Apixaban (Eliquis) 5 Mg Tab 5 MG PO BID for Blood Clot Prevention, #31 TAB Clopidogrel (Plavix) 75 Mg Tab 75 MG PO DAILY for Blood Clot Prevention, #30 TAB Metoprolol Tartrate (Metoprolol Tartrate) 25 Mg Tab 25 MG PO Q8HR for Regulate Heart Beat, #90 TAB Continued Medications: Aspirin DR (Aspirin EC) 81 Mg Tabdr 81 MG PO DAILY for Blood Clot Prevention, #30 TAB 0 Refills (This prescription has been renewed) Atorvastatin (Atorvastatin) 20 Mg Tab 20 MG PO HS for Cholesterol Management, #30 TAB 0 Refills (This prescription has been renewed) Glipizide (Glipizide) 10 Mg Tab 10 MG PO BIDAC for Blood Sugar Management, #60 TAB 0 Refills Take 30 minutes before a meal Insulin Human Isophane-Regular 70-30 Inj (Novolin 70-30 Inj) 1,000 Unit/10 Ml Vial 21 UNITS SQ for Blood Sugar Management, ML 0 Refills Insulin Human Isophane-Regular 70-30 Inj (Novolin 70-30 Inj) 1,000 Unit/10 Ml Vial 10 UNITS SQ HS for Blood Sugar Management, ML 0 Refills Nitroglycerin SL (Nitrostat SL) 0.4 Mg Subl 0.4 MG SL DIRECTED PRN for CHEST PAIN, #100 TAB.SL 0 Refills (This prescription has been renewed) 1 tablet under the tongue as needed for chest pain. Repeat every 5 minutes for a total of 3 DOSES or call 911 if NO relief. Spironolactone (Spironolactone) 25 Mg Tab 25 MG PO DAILY for Blood Pressure Management, #30 TAB 0 Refills (This prescription has been renewed) Discontinued Medications: Carvedilol (Carvedilol) 25 Mg Tab 25 MG BID, #60 TAB 0 Refills Losartan (Losartan) 100 Mg Tab 100 MG PO DAILY for Blood Pressure Management, #30 TAB 0 Refills Michael Samayoa DO Sep 11, 2017 14:40
[2017-09-11] MEDS ORDERED: LOSA100T PO (14:43)
--- NOTE | 2017-09-11 19:20 | EKG ---
Date Performed: 09/11/2017 Time Performed: 06:39:34 PTAGE: 67 years EKG: Ventricular pacing Pacemaker rhythm - no further analysis Abnormal ECG PREVIOUS TRACING : 09/09/2017 04.24 Since the previous tracing, no significant change noted DOCTOR: Mk Briones Interpretating Date/Time 09/11/2017 19:18:55
[2017-09-11] MEDS ORDERED: APIXABAN 5 MG TABLET PO SCH (21:00)
== END 2017-09-11 15:22 | disposition home or self-care (01) | DRG 247 ==
LOC: NEPC 15:14 → NEDA 17:50 → NEPGCP 22:40 → NEDH 09-09 09:28 → NEPGCP 09-09 09:30 → HCIS 09-09 13:09
PROVIDERS: ADMIT Hospitalist; ATTEND Hospitalist
PROC: B2111ZZ Fluoroscopy of Multiple Coronary Arteries using Low Osmolar Contrast (ICD-10-PCS; 2017-09-10)
PROC: B240ZZ3 Ultrasonography of Single Coronary Artery, Intravascular (ICD-10-PCS; 2017-09-10)
PROC: 4A023N7 Measurement of Cardiac Sampling and Pressure, Left Heart, Percutaneous Approach (ICD-10-PCS; 2017-09-10)
PROC: 027034Z Dilation of Coronary Artery, One Artery with Drug-eluting Intraluminal Device, Percutaneous Approach (ICD-10-PCS; principal; 2017-09-10 10:00)
DX: I21.4 Non-ST elevation (NSTEMI) myocardial infarction (principal); N17.9 Acute kidney failure, unspecified; E11.22 Type 2 diabetes mellitus with diabetic chronic kidney disease; I13.0 Hypertensive heart and chronic kidney disease with heart failure and stage 1 through stage 4 chronic kidney disease, or unspecified chronic kidney disease; I50.22 Chronic systolic (congestive) heart failure; N18.4 Chronic kidney disease, stage 4 (severe); I48.0 Paroxysmal atrial fibrillation; I25.110 Atherosclerotic heart disease of native coronary artery with unstable angina pectoris; M19.90 Unspecified osteoarthritis, unspecified site; I25.5 Ischemic cardiomyopathy; F41.1 Generalized anxiety disorder; G47.30 Sleep apnea, unspecified; E78.5 Hyperlipidemia, unspecified; E66.9 Obesity, unspecified; I25.2 Old myocardial infarction; Z79.4 Long term (current) use of insulin; Z95.810 Presence of automatic (implantable) cardiac defibrillator; Z82.49 Family history of ischemic heart disease and other diseases of the circulatory system; Z68.36 Body mass index [BMI] 36.0-36.9, adult
CPT/HCPCS: 71045; 71046; 80048; 80053; 82550; 82948; 83735; 83880; 84484; 85002; 85025; 85610; 85730; 92928; 92978; 93005; 93306; 93454; 96361; 96374; 96375; 96376; 99152; 99153; C1753; C1769; C1874; C1887; C1893; J0583; J1644; J1815; J2250; J2270; J3010; J7030; J7040; Q9967